=== PATIENT | female | born 1935 | race Caucasian/White ===

== ENCOUNTER → 2016-06-25 | Outpatient (CLI) | payer MEDICARE, OTHER ==
[2016-01-02 16:29] VITALS: BP 125/52
[~2016-06-25] MED LIST: ALPR1TAB6 PO; ASPI-482 PO; ASPI81TA2 PO; CARV12.5 PO; CARV3.12 PO; CARV40CP PO; CELE100C PO; CELE200C PO; CRESTOR5 MG PO; DULO60CA6 PO; FURO-69 PO; FURO40TA4 PO; HYDR-2666 PO; HYDR-2672 PO; HYDR-2762 PO; METH-38 PO; METH500T7 PO; MULT1CAP15 PO; PANT20TA3 PO; POTA99TA PO; PREG150C PO; SPIR25TA3 PO; TRAM50TA PO; VALS40TA2 PO; WARF1TAB7 PO
--- NOTE | 2016-06-25 18:26 | PAIN ---
DATE OF SERVICE: 06/25/2016 DIAGNOSES: Lumbar radiculopathy with lumbar degenerative disk disease, lumbar spinal stenosis and post-lumbar laminectomy syndrome. HISTORY: The patient is a 80-year-old female who returns for followup status post medication management with both hydrocodone and tramadol. The patient also taking Flexeril and Zanaflex, Flexeril during the day, Zanaflex at night with good results. The patient reports she has been very stable on her regimen and indeed has been on this for some time now with very good improvement. The patient reports about 70-80% improvement with the medications and without side effects. Reports her pain is a 3 on a scale 10 today. No side effects, no constipation, dizziness, drowsiness, nausea, vomiting, itching or memory loss. The patient reports that she is getting along fairly well. She is still using a walker to ambulate, still some pain in the low back and left hip and left lower extremity as she has had previously, is a 3 on a scale of 10 ____, however. The patient reports she is sleeping well at night. Again, having no other issues at this time. The patient's old chart was reviewed as her current medication regimen and updated. Current review of systems updated today as well. PHYSICAL EXAMINATION: VITAL SIGNS: Today, the patient's blood pressure is 134/75, pulse 72, respirations 20, temperature 99.5 degrees Fahrenheit, height is 5 feet 3 inches, weight is 189 pounds. GENERAL: The patient is awake, alert, oriented, appropriate, very pleasant demeanor. HEENT: Head shows normocephalic, atraumatic. Extraocular movements are intact and symmetrical. Oral cavity shows mucous membranes are moist and pink. Dentition is intact. NECK: Shows anterior throat supple. Swallow reflex is symmetrical. CHEST: Shows breath sounds clear to auscultation bilaterally. HEART: Shows S1 and S2 clear. ABDOMEN: Obese, soft, nontender, nondistended. No palpable organomegaly is noted. No rebound or guarding demonstrated. BACK: Shows grossly midline spine. Some increase in thoracic kyphosis is noted, some flattening of lumbar lordotic curvature with surgical scars again noted. Paraspinous musculature shows some moderate tenderness with palpation in the upper, middle and lower distribution of paraspinous muscles in the lumbar distribution bilaterally without any radiation of pain. EXTREMITIES: The patient's lower extremities showed deep tendon reflexes 1+ in the patellar and tendo calcaneus tendons. Motor exam remain strong with dorsiflexion, extension at 5/5. Options were discussed with the patient. We will refill the patient's hydrocodone as well as tramadol for 3-month supply as well as Zanaflex and Flexeril. She is taking the Zanaflex just at night and Flexeril during the day. The patient was counseled as to activity levels as well as side effects to be aware of and was counseled as to medication regimen and side effects to be aware of each of the medications were discussed. The patient will have the urinalysis today as well. She has had appropriate K-TRACS reporting today and appropriate urinalysis to date and had random screening today as well. The patient will follow up in approximately 90 days or sooner if necessary. NOA HUANG MD DR: YONY/radha JOB#: [id number] / [id number]
== END | disposition home or self-care (01) ==
LOC: PNCL 10:17
PROVIDERS: ATTEND Anesthesiology
DX: M51.36 Other intervertebral disc degeneration, lumbar region (principal); M48.06 Spinal stenosis, lumbar region; M96.1 Postlaminectomy syndrome, not elsewhere classified
CPT/HCPCS: G0463

== ENCOUNTER 2016-07-16 11:48 | Emergency (ER) | payer MEDICARE, OTHER ==
--- NOTE | 2016-07-16 12:55 | RAD ---
Portable chest, 07/16/2016: History: Chest pain Comparison is made to a study from 12/15/2015. A left-sided transvenous pacemaker remains in place. There are 4 leads extending into the heart. The heart appears to be within normal limits in size. There is calcific plaquing of the aorta. The pulmonary vascularity is normal. There is minimal thickening of the minor fissure on the right. No pulmonary consolidation is seen. There is no evidence of pleural fluid. A left humeral head prosthesis is in place. IMPRESSION: No acute cardiopulmonary abnormality is detected.
[2016-07-16] MEDS ORDERED: MORPHINE SULFATE 4 MG/ML DISP.SYRIN. IV ONE (13:00)
--- NOTE | 2016-07-16 13:30 | PHYS DOC ---
Past Medical History Past Medical History: CAD, CHF, Unknown Additional Past Medical Histor: Depression, anxiety, chronic back pain Past Surgical History: Knee Replacement, Other Additional Past Surgical Histo: pacemaker, defib, back surgery, shoulder Alcohol Use: None Drug Use: None Adult General Chief Complaint Chief Complaint: BACK PAIN - NO INJURY HPI HPI Patient is a 80 year old female who reports history of CHF with defibrillator, hypertension, chronic back pain and chronic "nerve pain", presents with constant , cramping like pain in her left lower chest, radiating to the flank to her left posterior flank and down into her low back. This is been present since yesterday. She has had pain similar to this in the past. She denies any inciting trauma or injury. Nothing seems to make the pain better or worse. She denies cough, shortness breath, palpitations, nausea, vomiting, diarrhea, abdominal pain, bloody stools, dysuria, or hematuria. She does report constipation. She apparently recently switched from Lyrica gabapentin due to cost issues, and she believes that this may be causing her flareup of pain. The she apparently takes benzodiazepine as well as hydrocodone for pain. Review of Systems Review of Systems Constitutional: Denies fever or chills Eyes: Denies change in visual acuity, redness, or eye pain HENT: Denies nasal congestion or sore throat Respiratory: Denies cough or shortness of breath Cardiovascular: Left lower chest pain. Denies palpitations or lightheadedness. GI: Denies abdominal pain, nausea, vomiting, bloody stools or diarrhea. Reports constipation. : Denies dysuria or hematuria Musculoskeletal: Reports left posterior flank/back pain radiating down into the low back. Integument: Denies rash or skin lesions Neurologic: Denies headache, focal weakness or sensory changes Current Medications Current Medications Current Medications Medications (Trade) Dose Ordered Sig/[facility] Start Time Stop Time Status Last Admin Dose Admin Lorazepam (Ativan) 1 mg 1X ONCE 07/16/16 16:45 07/16/16 16:46 DC 07/16/16 16:45 1 MG Morphine Sulfate 4 mg 1X ONCE 07/16/16 13:00 07/16/16 13:01 DC 07/16/16 12:57 4 MG Allergies Allergies Allergies Coded Allergies Type Severity Reaction Last Updated Verified oxycodone Allergy Intermediate "MAKES HER CRAZY", TAKES LORTAB AT HOME 7/12/ 16 Yes Physical Exam Physical Exam Constitutional: Well developed, well nourished, no acute distress, non-toxic appearance. HENT: Normocephalic, atraumatic, bilateral external ears normal, oropharynx moist, no oral exudates, nose normal. Eyes: PERRLA, EOMI, conjunctiva normal, no discharge. Neck: Normal range of motion, no tenderness, supple, no stridor. Cardiovascular:Heart rate regular rhythm, no murmur Lungs & Thorax: Bilateral breath sounds clear to auscultation. Reproducible tenderness of the left lower chest wall, left lateral and posterior flank. Some mild CVA tenderness appreciated. Abdomen: Bowel sounds normal, soft, no tenderness, no masses, no pulsatile masses. Skin: Warm, dry, no erythema, no rash. Back: Mild tenderness over the left CVA region, mild lateral flank tenderness to palpation. No deformity, atraumatic to inspection. Extremities: No tenderness, no cyanosis, ROM intact, no edema. Neurologic: Alert and oriented X 3, normal motor function, normal sensory function, no focal deficits noted. Psychologic: Anxious, tearful. Current Patient Data Vital Signs Vital Signs Date Time Temp Pulse Resp B/P Pulse Ox O2 Delivery O2 Flow Rate FiO2 07/16/16 17:00 70 12 151/68 97 Room Air 07/16/16 11:55 97.7 97.7 Lab Values Laboratory Tests Test 07/16/16 14:45 07/16/16 15:45 White Blood Count 7.1x10^3/uL (4.0-11.0) Red Blood Count 4.73x10^6/uL (3.50-5.40) Hemoglobin 12.4g/dL (12.0-15.5) Hematocrit 38.4% (36.0-47.0) Mean Corpuscular Volume 81fL (79-100) Mean Corpuscular Hemoglobin 26pg (25-35) Mean Corpuscular Hemoglobin Concent 32g/dL (31-37) Red Cell Distribution Width 16.4% (11.5-14.5) H Platelet Count 203x10^3/uL (140-400) Neutrophils (%) (Auto) 69% (31-73) Lymphocytes (%) (Auto) 21% (24-48) L Monocytes (%) (Auto) 8% (0-9) Eosinophils (%) (Auto) 1% (0-3) Basophils (%) (Auto) 1% (0-3) Neutrophils # (Auto) 4.9x10^3uL (1.8-7.7) Lymphocytes # (Auto) 1.5x10^3/uL (1.0-4.8) Monocytes # (Auto) 0.6x10^3/uL (0.0-1.1) Eosinophils # (Auto) 0.1x10^3/uL (0.0-0.7) Basophils # (Auto) 0.0x10^3/uL (0.0-0.2) Prothrombin Time 13.2SEC (11.7-14.0) Prothrombin Time INR 1.1 (0.8-1.1) Sodium Level 144mmol/L (136-145) Potassium Level 3.9mmol/L (3.5-5.1) Chloride Level 106mmol/L (98-107) Carbon Dioxide Level 29mmol/L (21-32) Anion Gap 9 (6-14) Blood Urea Nitrogen 11mg/dL (7-20) Creatinine 0.9mg/dL (0.6-1.0) Estimated GFR (Cockcroft-Gault) 60.4 BUN/Creatinine Ratio 12 (6-20) Glucose Level 103mg/dL (70-99) H Calcium Level 9.5mg/dL (8.5-10.1) Total Bilirubin 0.5mg/dL (0.2-1.0) Aspartate Amino Transferase (AST) 17U/L (15-37) Alanine Aminotransferase (ALT) 18U/L (14-59) Alkaline Phosphatase 84U/L (46-116) Troponin I Quantitative < 0.017ng/mL (0.000-0.055) Total Protein 7.3g/dL (6.4-8.2) Albumin 3.9g/dL (3.4-5.0) Albumin/Globulin Ratio 1.1 (1.0-1.7) Urine Collection Type Unknown Urine Color Yellow Urine Clarity Clear Urine pH 8.5 Urine Specific [place] <=1.005 Urine Protein Negativemg/dL (NEG-TRACE) Urine Glucose (UA) Negativemg/dL (NEG) Urine Ketones (Stick) Negativemg/dL (NEG) Urine Blood Negative (NEG) Urine Nitrite Negative (NEG) Urine Bilirubin Negative (NEG) Urine Urobilinogen Dipstick 0.2mg/dL (0.2 mg/dL) Urine Leukocyte Esterase Negative (NEG) Urine RBC Occ/HPF (0-2) Urine WBC Occ/HPF (0-4) Urine Squamous Epithelial Cells Occ/LPF Urine Bacteria 0/HPF (0-FEW) Laboratory Tests 07/16/16 14:45 Laboratory Tests 07/16/16 14:45 EKG EKG EKG: Apparent sinus rhythm with occasional pacer spikes. Rate 70 bpm. Normal axis. Nonspecific intraventricular block, QRS [address] segment changes or acute abnormalities. EKG interpreted by me. Radiology/Procedures Radiology/Procedures PATIENT: LIA DIAZ ACCOUNT: [id number] : 1935 LOCATION: ER AGE: 80 SEX: F EXAM STATUS: PRE ER ORD. PHYSICIAN: MARCO A JOLLEY MD REASON: chest pain PROCEDURE: CHEST AP ONLY Portable chest, 07/16/2016: History: Chest pain Comparison is made to a study from 12/15/2015. A left-sided transvenous pacemaker remains in place. There are 4 leads extending into the heart. The heart appears to be within normal limits in size. There is calcific plaquing of the aorta. The pulmonary vascularity is normal. There is minimal thickening of the minor fissure on the right. No pulmonary consolidation is seen. There is no evidence of pleural fluid. A left humeral head prosthesis is in place. IMPRESSION: No acute cardiopulmonary abnormality is detected. DICTATED and SIGNED BY: SCOTT GARCÍA MD DATE: 07/16/16 1250 CC: YEIMY PACK MD; MARCO A JOLLEY MD ~ PATIENT: ILA DIAZ ACCOUNT: [id number] : 1935 LOCATION: ER AGE: 80 SEX: F EXAM STATUS: REG ER ORD. PHYSICIAN: MARCO A JOLLEY MD REASON: flank pain; r/o stone PROCEDURE: ABDOMEN PELVIS WO CONTRAST PROCEDURE CT scan of the abdomen and pelvis without contrast 07/16/2016 HISTORY Left flank pain for 2 weeks. TECHNIQUE Unenhanced contiguous, 2 millimeter axial sections were obtained through the abdomen and pelvis. One or more of the following individualized dose reduction techniques were utilized for this study: 1. Automated exposure control. 2. Adjustment of the mA and/or kV according to patient size. 3. Use of iterative reconstruction technique. FINDINGS Comparison study is dated 04/30/2013. Images through the lung bases demonstrate mild to moderate cardiomegaly. Dependent subsegmental atelectasis is seen involving both lower lobes. The liver, spleen, pancreas, adrenal glands and kidneys are within normal limits. Moderate atherosclerotic calcification of the abdominal aorta is seen. The abdominal aorta tapers normally. The gallbladder is contracted slightly. No free fluid or free air is seen within the abdomen. There is no evidence of bowel obstruction. Air and stool is seen throughout the colon. The appendix is well-visualized and is within normal limits. Images through the pelvis demonstrate the urinary bladder distended with urine. No distal ureteral calculus is seen. Calcifications are seen within the pelvis consistent with phleboliths. No adnexal mass is seen. Minimal S-shaped curvature of the thoracolumbar spine is noted. Degenerative changes are seen involving the lower thoracic and throughout the lumbar spine and both hips. The patient is status post posterolateral fusion using pedicle screws and stabilizing rods at L4-5. IMPRESSION No acute abnormality is seen. Electronically signed by: Sonido West MD (Jul 16, 2016 17:34:20) DICTATED and SIGNED BY: SONIDO WEST MD DATE: 07/16/16 1734 CC: YEIMY PACK MD; MARCO A JOLLEY MD ~ Course & Med Decision Making Course & Med Decision Making Pertinent Labs and Imaging studies reviewed. (See chart for details) Patient is stable vitals and unremarkable exam. She has minimal tenderness to palpation. Labs are unremarkable, x-ray is unrevealing, EKG is nonischemic, and troponin is negative. Urinalysis is not suggestive of infection. Her pain appears to be either neuropathic or musculoskeletal in nature. She takes hydrocodone/APAP twice a day and is also on gabapentin. I have advised that she can take hydrocodone/APAP every 4-6 hours as needed for the next few days until this blows over. I did a CT on the/pelvis to rule out kidney stone and this was negative. I also discussed case with Dr. Pack and she agrees the patient is safe to be discharged home. I advised she follow up with Dr. 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 Return precautions were discussed and all questions were answered prior to discharge. Dragon Disclaimer Dragon Disclaimer This electronic medical record was generated, in whole or in part, using a voice recognition dictation system. Departure Departure Impression: Primary Impression: Flank pain Additional Impression: Back pain Disposition: HOME, SELF-CARE Condition: STABLE Referrals: YEIMY PACK MD (PCP) Patient Instructions: Back Pain, Adult, [id number], Chronic Back Pain Additional Instructions: Continue taking your medications as directed. You may take your hydrocodone every 4-6 hours as needed for the next few days until this episode of pain blows over. If your symptoms change or worsen, return to the emergency department. Otherwise, follow up next week with Dr. Pack and your automotive painter helper in clinic. Problem Qualifiers Additional Impression: Back pain Back pain location: low back pain Chronicity: chronic Back pain laterality : left Sciatica presence: unspecified whether sciatica present Qualified Code: M54.5 - Low back pain MARCO A JOLLEY MD Jul 16, 2016 12:46
[2016-07-16 15:00] LABS: BASO % 1 % (0-3); EOS % 1 % (0-3); HEMATOCRIT 38.4 % (36.0-47.0); HEMOGLOBIN 12.4 g/dL (12.0-15.5); LYMPH # 1.5 x10^3/uL (1.0-4.8); LYMPH % 21 % (24-48); MEAN CORPUSCULAR HEMOGLOBIN 26 pg (25-35); MEAN CORPUSCULAR HGB CONC 32 g/dL (31-37); MEAN CORPUSCULAR VOLUME 81 fL (79-100); MONO % 8 % (0-9); NEUT % 69 % (31-73); PLATELET COUNT 203 x10^3/uL (140-400); RED BLOOD COUNT 4.73 x10^6/uL (3.50-5.40); RED CELL DISTRIBUTION WIDTH 16.4 % (11.5-14.5); WHITE BLOOD COUNT 7.1 x10^3/uL (4.0-11.0)
--- NOTE | 2016-07-16 15:06 | EKG ---
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
[2016-07-16 15:11] LABS: INR 1.1 (0.8-1.1); PROTHROMBIN TIME PATIENT 13.2 SEC (11.7-14.0)
[2016-07-16 15:14] LABS: CALCIUM 9.5 mg/dL (8.5-10.1); CREATININE 0.9 mg/dL (0.6-1.0); GFR 60.4; POTASSIUM 3.9 mmol/L (3.5-5.1)
[2016-07-16 15:21] LABS: ALBUMIN 3.9 g/dL (3.4-5.0); ALBUMIN/GLOBULIN RATIO 1.1 (1.0-1.7); TOTAL BILIRUBIN 0.5 mg/dL (0.2-1.0); TOTAL PROTEIN 7.3 g/dL (6.4-8.2)
[2016-07-16 15:57] LABS: BILIRUBIN,URINE NEGATIVE (NEG); GLUCOSE,URINE NEGATIVE (NEG); NITRITE,URINE NEGATIVE (NEG); PH,URINE 8.5; PROTEIN,URINE NEGATIVE (NEG-TRACE); UROBILINOGEN,URINE 0.2 mg/dL (0.2 mg/dL)
[2016-07-16 16:04] LABS: BACTERIA,URINE 0 /HPF (0-FEW); RBC,URINE OCC /HPF (0-2); SQUAMOUS EPITHELIAL CELL,UR OCC /LPF; WBC,URINE OCC /HPF (0-4)
[2016-07-16] MEDS ORDERED: LORAZEPAM 2 MG/ML VIAL IV ONE (16:45)
[2016-07-16 17:30] VITALS: BP 145/72
--- NOTE | 2016-07-16 17:35 | RAD ---
PROCEDURE CT scan of the abdomen and pelvis without contrast 07/16/2016 HISTORY Left flank pain for 2 weeks. TECHNIQUE Unenhanced contiguous, 2 millimeter axial sections were obtained through the abdomen and pelvis. One or more of the following individualized dose reduction techniques were utilized for this study: 1. Automated exposure control. 2. Adjustment of the mA and/or kV according to patient size. 3. Use of iterative reconstruction technique. FINDINGS Comparison study is dated 04/30/2013. Images through the lung bases demonstrate mild to moderate cardiomegaly. Dependent subsegmental atelectasis is seen involving both lower lobes. The liver, spleen, pancreas, adrenal glands and kidneys are within normal limits. Moderate atherosclerotic calcification of the abdominal aorta is seen. The abdominal aorta tapers normally. The gallbladder is contracted slightly. No free fluid or free air is seen within the abdomen. There is no evidence of bowel obstruction. Air and stool is seen throughout the colon. The appendix is well-visualized and is within normal limits. Images through the pelvis demonstrate the urinary bladder distended with urine. No distal ureteral calculus is seen. Calcifications are seen within the pelvis consistent with phleboliths. No adnexal mass is seen. Minimal S-shaped curvature of the thoracolumbar spine is noted. Degenerative changes are seen involving the lower thoracic and throughout the lumbar spine and both hips. The patient is status post posterolateral fusion using pedicle screws and stabilizing rods at L4-5. IMPRESSION No acute abnormality is seen. Electronically signed by: Sonido West MD (Jul 16, 2016 17:34:20)
== END 2016-07-16 18:00 | disposition home or self-care (01) ==
LOC: ER 11:48
DX: M54.5 Low back pain (principal); R10.9 Unspecified abdominal pain; G89.29 Other chronic pain; R07.89 Other chest pain; I11.0 Hypertensive heart disease with heart failure; I50.9 Heart failure, unspecified; I25.10 Atherosclerotic heart disease of native coronary artery without angina pectoris; Z95.810 Presence of automatic (implantable) cardiac defibrillator; Z98.890 Other specified postprocedural states; Z88.5 Allergy status to narcotic agent
CPT/HCPCS: 36415; 71010; 74176; 80053; 81001; 84484; 85027; 85610; 93005; 96374; 96375; 99285; J2060; J2270

== ENCOUNTER → 2016-09-17 | Outpatient (CLI) | payer MEDICARE, OTHER ==
[~2016-09-17] MED LIST changes: +CYCL10TA2 PO; +TIZA4TAB PO
--- NOTE | 2016-09-18 00:07 | PN ---
DATE: 09/17/2016 PROGRESS NOTE FOR PAIN CLINIC DIAGNOSES: Lumbar radiculopathy, lumbar degenerative disk disease, spinal stenosis and post-lumbar laminectomy syndrome. HISTORY OF PRESENT ILLNESS: The patient is an 81-year-old female who returns for followup status post medication management with both tramadol and hydrocodone as well as Zanaflex and cyclobenzaprine. The patient reports she has been doing well with these and has a combination of taking the medications of tramadol 2 in the morning, 2 in the evening, and hydrocodone up to 3 times a day during the day and waking hours depending on her activity. The patient reports she is very well controlled with this regimen about 80% or so without significant side effects. She does have some mild constipation, but has been using prunes and prune juices as well as some [id number] laxatives which helps keep things regular for her and she has good regimen regarding this. The patient reports no new motor or sensory deficits, no new bowel or bladder incontinence or other complaints, still significant pain in the low back and the left leg. We had tried some caudal approach epidural steroid injections in the past and the patient only had very minimal relief with this, did not desire any more injections. We discussed this again today with she and her and she would like to stay with her medication regimen as she is doing quite well with this and indeed has been quite stable. The patient had appropriate K-TRACS reporting today and appropriate urinalysis today as well. On rating patient reports her pain is 2-3 on a scale of 10 currently. Describes it is hurting and spastic in the low back and left leg. PHYSICAL EXAMINATION: VITAL SIGNS: The patient's blood pressure 131/71, pulse is 74, respirations 18, temperature is 98.9 degrees Fahrenheit, weight is 186 pounds. GENERAL: The patient is awake, alert, oriented, appropriate, very pleasant demeanor. HEENT: Head shows normocephalic, atraumatic. Extraocular movements are intact, symmetrical. Oral cavity, mucous membranes are moist and pink. Dentition is intact. NECK: Shows anterior throat supple without palpable lymphadenopathy noted. Swallow reflex is symmetrical. CHEST: Shows normal with inspection. Breath sounds clear to auscultation bilaterally. HEART: Shows S1 and S2 clear. No murmurs are auscultated. ABDOMEN: Shows obese, soft, nontender, nondistended. No palpable organomegaly is noted. BACK: Shows spine grossly midline. The patient's lumbar paraspinous muscle shows a well-healed surgical scar in the midline and paraspinous musculature that shows diffuse tenderness bilaterally, worse on the left than the right especially in the mid upper aspect of the left paraspinous musculature, which is very firm, very tender with palpation, right side less tender. No tenderness over the sacrum on palpation. The patient's lower extremities showed deep tendon reflexes 1+ in the patellar and tendo calcaneus tendons. Motor exam is strong with dorsiflexion, extension, quadriceps and hamstring flexion rated about 4/5, but symmetrical and equal. Options were discussed with the patient. The patient's old chart was reviewed as her current medication regimen and updated. Current review of systems updated today as well. We will refill the patient's hydrocodone as well as tramadol, Zanaflex and Flexeril with instructions, side effects to be aware of each of the medications discussed. The patient will follow up in approximately 2 months and was given a 60 day prescription for each of these with instructions and side effects to be aware of once again. The patient will follow up in 60 days or sooner if necessary. NOA HUANG MD DR: YONY/radha JOB#: [id number] / [id number]
== END | disposition home or self-care (01) ==
LOC: PNCL 10:25
PROVIDERS: ATTEND Anesthesiology
DX: M51.16 Intervertebral disc disorders with radiculopathy, lumbar region (principal); M48.06 Spinal stenosis, lumbar region; M96.1 Postlaminectomy syndrome, not elsewhere classified
CPT/HCPCS: G0463

== ENCOUNTER → 2016-11-05 | Outpatient (CLI) | payer MEDICARE, OTHER ==
--- NOTE | 2016-11-06 00:26 | PAIN ---
DATE OF SERVICE: 11/05/2016 DIAGNOSES: Lumbar radiculopathy with lumbar degenerative disk disease, spinal stenosis and post-lumbar laminectomy syndrome. HISTORY OF PRESENT ILLNESS: The patient is an 81-year-old female, who returns for followup status post medication management with both tramadol and hydrocodone as well as Flexeril and Zanaflex. The patient reports doing well as ____ balance with these medications and doing very well for her pain decreasing by about 80% or more. The patient reports some increased pain in the low back in the right side radiating to her right leg, mostly in the posterior lateral aspect of the thigh and into the calf on the right side, but it is only intermittent burning, stinging, sharp pain as well as aching across the low back. The patient reports anywhere from 3-7 on a scale 10, 7 with activity, standing and walking. It does not awaken her from sleep at night. She has been sleeping well, but feels better with sitting down or lying down. The patient reports no new motor or sensory deficits, no new bowel or bladder incontinence or other complaints. PHYSICAL EXAMINATION: VITAL SIGNS: The patient's blood pressure is 104/58, pulse is 94, respirations 18, temperature is 98.0 degrees Fahrenheit, weight is 186 pounds, and height 5 feet 3 inches. GENERAL: The patient is awake, alert, oriented, appropriate, very pleasant demeanor. HEENT: Shows normocephalic and atraumatic. Extraocular movements are intact and symmetrical. Oral cavity shows mucous membranes moist and pink. The patient wears eye glasses. NECK: Shows anterior throat supple without palpable lymphadenopathy noted. Swallow reflex is symmetrical. CHEST: Shows normal on inspection. Breath sounds clear to auscultation bilaterally. HEART: Shows S1 and S2 clear. ABDOMEN: Soft, nontender, and nondistended. No palpable organomegaly is noted. BACK: Shows spine grossly midline. Slight exaggeration of thoracic kyphosis, mild flattening of lumbar lordotic curvature, previously well-healed surgical scar is noted in the lumbar distribution. Lumbar paraspinous muscle shows some moderate tenderness to palpation bilaterally, but only diffusely in the lumbar paraspinous musculature. Options were discussed with the patient and the patient's old chart was reviewed as her current medication regimen updated. Current review of systems updated today as well. We will proceed with refill of patient's tramadol as well as hydrocodone, Zanaflex and Flexeril, also try Medrol Dosepak to see if this may help with her radicular pain and her low back pain. The patient will return to clinic in approximately 4 weeks for followup. She was counseled as to return appointment, activity level and side effects to be aware of. The patient has had appropriate K-TRACS reporting as well as appropriate urinalysis to date. We will refill the patient's pain medication for 2 months with side effects and instructions discussed as well. NOA HUANG MD DR: YONY/radha JOB#: [id number] / [id number]
== END | disposition home or self-care (01) ==
LOC: PNCL 09:49
PROVIDERS: ATTEND Anesthesiology
DX: M51.16 Intervertebral disc disorders with radiculopathy, lumbar region (principal); M48.06 Spinal stenosis, lumbar region; M96.1 Postlaminectomy syndrome, not elsewhere classified
CPT/HCPCS: G0463

== ENCOUNTER → 2016-12-31 | Outpatient (CLI) | payer MEDICARE, OTHER ==
[~2016-12-31] MED LIST changes: +ASPI-630 PO; -ASPI81TA2 PO; -HYDR-2666 PO; -HYDR-2672 PO; +HYDR-2758 PO; +HYDR-2766 PO
== END | disposition home or self-care (01) ==
LOC: PNCL 10:23
PROVIDERS: ATTEND Anesthesiology
DX: M50.30 Other cervical disc degeneration, unspecified cervical region (principal); Z98.890 Other specified postprocedural states
CPT/HCPCS: G0463

== ENCOUNTER → 2017-02-25 | Outpatient (CLI) | payer MEDICARE, OTHER ==
[~2017-02-25] MED LIST changes: +CARV25TA2 PO; +TIZA4TAB8 PO
--- NOTE | 2017-02-25 15:19 | PN ---
DATE: 02/25/2017 PROGRESS NOTE ON PAIN CLINIC. DIAGNOSES: Lumbar radiculopathy with lumbar spinal stenosis, degenerative disk disease and post-lumbar laminectomy syndrome. HISTORY OF PRESENT ILLNESS: The patient is an 81-year-old female who returns for followup status post medication management with both tramadol and hydrocodone. The patient reports she has been doing very well with this as a good regimen, where she is taking the tramadol intermittently with hydrocodone only up to 3 times a day, mostly in the evening. She takes hydrocodone and tramadol during the day when she is more active. The patient reports no side effects with the medication, some mild constipation, but it is well controlled with some qadf-jni-pgopwhe laxatives and increase hydration as well as fruits and pulp that she is eating. The patient reports otherwise no new motor or sensory deficits. The patient reports about 80% improvement overall with the medications and no other side effects. The patient reports her pain is a 10 on a scale of 10, it is worse 8 at the average and 7 at the least. The patient reports pain in the low back, left lower extremity radiating to the posterior gluteus, lateral thigh, posterior thigh, anterior thigh and groin on the left side, off and on. Though it is not a constant pain, the patient reports it is worse with standing, walking, getting around or changing positions. We had interventional techniques tried in the past. The patient reports that she did not do well with these and is adamantly against trying these again. We discussed caudal epidural steroid injections, but they have been very limited for her in the past and the medication seems to be working quite well. The patient has had appropriate K-TRACS reporting as well as appropriate urinalysis to date. PHYSICAL EXAMINATION: VITAL SIGNS: The patient's blood pressure is 86/22, rechecked at 107/64; pulse is 57; respirations 16 and temperature 97.7 degrees Fahrenheit. Height is 5 feet 3 inches. GENERAL: The patient is awake, alert, oriented, appropriate, very pleasant demeanor. The patient accompanied by her . HEENT: Head shows normocephalic, atraumatic. Extraocular movements are intact and symmetrical. Oral cavity, mucous membranes are moist and pink. Dentition is intact. NECK: Shows anterior throat supple. Swallow reflex is symmetrical. CHEST: Shows normal on inspection. Breath sounds are clear bilaterally. HEART: Shows S1 and S2 clear. No murmurs auscultated. ABDOMEN: Soft, nontender and nondistended. No palpable organomegaly is noted. No rebound or guarding demonstrated. BACK: Shows spine grossly in the midline. Some reduction and flattening of the lumbar lordotic curvature with well-healed surgical scar noted. The paraspinous muscle shows some mild tenderness, but only diffusely in the upper, middle and lower distribution of paraspinous muscles, without radiation. LOWER EXTREMITIES: Show deep tendon reflexes 1+ in the patellar and tendo calcaneus tendons. Motor exam is approximately 4 on a scale of 5 with dorsiflexion and extension, but equal and symmetrical. Pulses are 1+ in the posterior tibial bilaterally without edema. Options were discussed with the patient. The patient's old chart was reviewed as her current medication regimen updated. Current review of systems updated today as well. We will refill the patient's medication for a 2-month prescription for tramadol, hydrocodone and also Robaxin and Zanaflex. She takes the Zanaflex only in the evening and Robaxin during the day as she does not get sedated from it, but does from the Zanaflex and reports again she has very stable regimen that does well for her. We discussed diet as well as hydration, with the opioid medications and the patient will follow up soon with her primary care physician as well to discuss blood pressure medications and she is unsure that she may have taken 2 of her blood pressure medications this morning, which may explain this initially low reading. The patient will follow up in 2 months as scheduled, was given instruction as well as side effects to be aware of with medications also. NOA HUANG MD DR: YONY/radha JOB#: [id number] / [id number]
== END | disposition home or self-care (01) ==
LOC: PNCL 10:10
PROVIDERS: ATTEND Anesthesiology
DX: M51.16 Intervertebral disc disorders with radiculopathy, lumbar region (principal); M48.06 Spinal stenosis, lumbar region
CPT/HCPCS: G0463

== ENCOUNTER → 2017-06-17 | Outpatient (CLI) | payer MEDICARE, OTHER | END | disposition home or self-care (01) | LOC: PNCL 11:35 | DX: M48.061 Spinal stenosis, lumbar region without neurogenic claudication (principal); M51.16 Intervertebral disc disorders with radiculopathy, lumbar region; K59.00 Constipation, unspecified | CPT/HCPCS: G0463 ==

== ENCOUNTER → 2017-08-24 | Outpatient (CLI) | payer MEDICARE, OTHER | END | disposition home or self-care (01) | LOC: PNCL 11:19 | DX: M51.16 Intervertebral disc disorders with radiculopathy, lumbar region (principal); M48.061 Spinal stenosis, lumbar region without neurogenic claudication; M40.294 Other kyphosis, thoracic region; M25.562 Pain in left knee | CPT/HCPCS: G0463 ==

== ENCOUNTER → 2017-10-19 | Outpatient (CLI) | payer MEDICARE, OTHER | END | disposition home or self-care (01) | LOC: PNCL 10:14 | DX: M51.16 Intervertebral disc disorders with radiculopathy, lumbar region (principal); M48.061 Spinal stenosis, lumbar region without neurogenic claudication; K59.00 Constipation, unspecified | CPT/HCPCS: G0463 ==

== ENCOUNTER 2018-01-11 15:07 | Inpatient (IN) | payer MEDICARE, OTHER ==
[2018-01-11] MEDS: IV NORMAL SALINE 1000ML BAG 1,000 ML IV ×2 (15:18→23:32)
[2018-01-11 15:26] LABS: BASE EXCESS ABG 1 mmol/L (-3-3); FIO2 ABG 100; HCO3 ABG 27 mmol/L (21-28); PCO2 ABG 48 mmHg (35-46); PH ABG 7.36 (7.35-7.45); PO2 ABG 202 mmHg (65-108); SAT O2 ABG 99 % (92-99)
[2018-01-11 15:27] LABS: AGAP ISTAT 16 mmol/L (6-14); BUN ISTAT 24 mg/dL (8-26); CHLORIDE ISTAT 101 mmol/L (98-110); CREATININE ISTAT 1.1 mg/dL (0.5-1.4); GLUCOSE ISTAT 161 mg/dL (70-99); HEMATOCRIT ISTAT 41 % (36-40); HEMOGLOBIN ISTAT 13.9 g/dL (12-15); ION CA ISTAT 1.19 mmol/L (1.13-1.32); POTASSIUM ISTAT 3.9 mmol/L (3.5-5.0); SODIUM ISTAT 141 mmol/L (135-145); TOT CO2 ISTAT 29 mmol/L (23-32)
[2018-01-11 15:30] LABS: ADD MAN DIFF? NO
[2018-01-11 15:33] LABS: TROPONIN BY ISTAT 0.01 ng/ml (<0.08)
[2018-01-11 15:40] LABS: BASO % 1 % (0-3); BILIRUBIN,URINE NEGATIVE (NEG); CLARITY,URINE CLEAR; COLOR,URINE YELLOW; EOS # 0.1 x10^3/uL (0.0-0.7); EOS % 2 % (0-3); GLUCOSE,URINE NEGATIVE (NEG); HEMATOCRIT 41.1 % (36.0-47.0); HEMOGLOBIN 13.3 g/dL (12.0-15.5); LYMPH % 33 % (24-48); MEAN CORPUSCULAR HEMOGLOBIN 26 pg (25-35); MEAN CORPUSCULAR HGB CONC 32 g/dL (31-37); MEAN CORPUSCULAR VOLUME 81 fL (79-100); MONO # 0.6 x10^3/uL (0.0-1.1); MONO % 9 % (0-9); NEUT # 3.5 x10^3uL (1.8-7.7); NEUT % 55 % (31-73); NITRITE,URINE NEGATIVE (NEG); PLATELET COUNT 173 x10^3/uL (140-400); PROTEIN,URINE NEGATIVE (NEG-TRACE); RED BLOOD COUNT 5.05 x10^6/uL (3.50-5.40); RED CELL DISTRIBUTION WIDTH 18.6 % (11.5-14.5); UROBILINOGEN,URINE 0.2 mg/dL (0.2 mg/dL); WHITE BLOOD COUNT 6.2 x10^3/uL (4.0-11.0)
[2018-01-11 15:45] LABS: BACTERIA,URINE 0 /HPF (0-FEW); WBC,URINE OCC /HPF (0-4)
[2018-01-11 15:46] LABS: HYALINE CASTS, URINE FEW /HPF
[2018-01-11 15:47] LABS: INR 1.1 (0.8-1.1); PROTHROMBIN TIME PATIENT 13.7 SEC (11.7-14.0)
[2018-01-11 15:50] LABS: ANION GAP 15 (6-14); BLOOD UREA NITROGEN 23 mg/dL (7-20); BUN/CREATININE RATIO 19 (6-20); CALCIUM 10.3 mg/dL (8.5-10.1); CARBON DIOXIDE 27 mmol/L (21-32); CHLORIDE 100 mmol/L (98-107); CREATININE 1.2 mg/dL (0.6-1.0); GFR 43.1; GLUCOSE 157 mg/dL (70-99); POTASSIUM 3.9 mmol/L (3.5-5.1); SODIUM 142 mmol/L (136-145)
[2018-01-11 15:57] LABS: ALBUMIN/GLOBULIN RATIO 1.1 (1.0-1.7); ALK PHOS 124 U/L (46-116); ALT (SGPT) 24 U/L (14-59); AST (SGOT) 25 U/L (15-37); MAGNESIUM 2.1 mg/dL (1.8-2.4); TOTAL BILIRUBIN 0.8 mg/dL (0.2-1.0); TOTAL PROTEIN 7.7 g/dL (6.4-8.2)
[2018-01-11 15:58] LABS: TROPONINI < 0.017 ng/mL (0.000-0.055)
[2018-01-11 16:06] LABS: CKMB MASS 1.4 ng/mL (0.0-3.6); CREATINE KINASE 70 U/L (26-192)
[2018-01-11 16:06] LABS: NT-PRO BNP 191 pg/mL (0-449)
[2018-01-11] MEDS: fentaNYL PF VIAL 100 MCG/2 ML VIAL IV (19:29)
[2018-01-11] MEDS: ONDANSETRON PF 4 MG/2 ML VIAL. IV (19:29)
[2018-01-11] MEDS: tiZANidine 4 MG TABLET. PO (21:19)
[2018-01-11] MEDS: PREGABALIN 75 MG CAPSULE PO (23:29)
[2018-01-12] MEDS: NOREPINEPHRIN 8MG/250ML PREMIX 250 ML IV (01:31)
[2018-01-12 08:23] LABS: MAGNESIUM 2.2 mg/dL (1.8-2.4)
[2018-01-12 08:26] LABS: ALBUMIN 3.3 g/dL (3.4-5.0); ALK PHOS 113 U/L (46-116); ALT (SGPT) 27 U/L (14-59); ANION GAP 9 (6-14); AST (SGOT) 38 U/L (15-37); BLOOD UREA NITROGEN 17 mg/dL (7-20); BUN/CREATININE RATIO 21 (6-20); CARBON DIOXIDE 29 mmol/L (21-32); CHLORIDE 107 mmol/L (98-107); CREATININE 0.8 mg/dL (0.6-1.0); GFR 68.8; GLUCOSE 97 mg/dL (70-99); POTASSIUM 3.8 mmol/L (3.5-5.1); SODIUM 145 mmol/L (136-145); TOTAL BILIRUBIN 0.6 mg/dL (0.2-1.0); TOTAL PROTEIN 6.6 g/dL (6.4-8.2)
[2018-01-12 08:32] LABS: TROPONINI < 0.017 ng/mL (0.000-0.055)
[2018-01-12 08:37] LABS: THYROID STIM HORMONE (TSH) 2.737 uIU/mL (0.358-3.74)
[2018-01-12 10:51] LABS: INR 1.1 (0.8-1.1); PROTHROMBIN TIME PATIENT 13.5 SEC (11.7-14.0)
[2018-01-12] MEDS: IV NORMAL SALINE 1000ML BAG 1,000 ML IV ×2 (12:50→17:31)
[2018-01-12] MEDS ORDERED: traMADol 50 MG TABLET PO (13:30)
[2018-01-12] MEDS: HYDROcodone/APAP 7.5/325MG 1 TAB TABLET PO ×2 (13:35→20:11)
[2018-01-12] MEDS: PREGABALIN 75 MG CAPSULE PO ×2 (13:35→20:12)
[2018-01-12] MEDS: LACTULOSE 20 GM/30 ML SOLUTION. PO (13:45)
[2018-01-12 20:18] LABS: C DIFF BY PCR Negative (Negative)
[2018-01-12] MEDS: SOTALOL 80 MG TABLET. PO (21:54)
[2018-01-13] MEDS: tiZANidine 4 MG TABLET. PO (00:07)
[2018-01-13] MEDS: HYDROcodone/APAP 7.5/325MG 1 TAB TABLET PO (00:08)
[2018-01-13 04:29] LABS: ADD MAN DIFF? NO
[2018-01-13 05:06] LABS: BASO % 0 % (0-3); EOS # 0.2 x10^3/uL (0.0-0.7); EOS % 3 % (0-3); HEMATOCRIT 33.1 % (36.0-47.0); HEMOGLOBIN 10.8 g/dL (12.0-15.5); LYMPH # 1.2 x10^3/uL (1.0-4.8); LYMPH % 23 % (24-48); MEAN CORPUSCULAR HEMOGLOBIN 27 pg (25-35); MEAN CORPUSCULAR HGB CONC 33 g/dL (31-37); MEAN CORPUSCULAR VOLUME 83 fL (79-100); MONO # 0.5 x10^3/uL (0.0-1.1); MONO % 9 % (0-9); NEUT # 3.5 x10^3uL (1.8-7.7); NEUT % 65 % (31-73); PLATELET COUNT 124 x10^3/uL (140-400); RED CELL DISTRIBUTION WIDTH 18.5 % (11.5-14.5); WHITE BLOOD COUNT 5.4 x10^3/uL (4.0-11.0)
[2018-01-13 05:37] LABS: ALBUMIN 2.9 g/dL (3.4-5.0); ALBUMIN/GLOBULIN RATIO 0.9 (1.0-1.7); ALK PHOS 94 U/L (46-116); ALT (SGPT) 21 U/L (14-59); ANION GAP 6 (6-14); AST (SGOT) 29 U/L (15-37); BLOOD UREA NITROGEN 10 mg/dL (7-20); BUN/CREATININE RATIO 14 (6-20); CALCIUM 9.3 mg/dL (8.5-10.1); CARBON DIOXIDE 28 mmol/L (21-32); CHLORIDE 109 mmol/L (98-107); CREATININE 0.7 mg/dL (0.6-1.0); GFR 80.3; GLUCOSE 96 mg/dL (70-99); POTASSIUM 3.8 mmol/L (3.5-5.1); SODIUM 143 mmol/L (136-145); TOTAL BILIRUBIN 0.7 mg/dL (0.2-1.0)
[2018-01-13] MEDS: PREGABALIN 75 MG CAPSULE PO (08:03)
[2018-01-13] MEDS: LACTULOSE 20 GM/30 ML SOLUTION. PO (08:04)
[2018-01-13] MEDS: CELECOXIB 100 MG CAPSULE. PO (08:04)
[2018-01-13] MEDS: METHOCARBAMOL 750 MG TABLET PO (08:04)
[2018-01-13] MEDS: SOTALOL 80 MG TABLET. PO (08:04)
[2018-01-14 10:17] LABS: MRSA BY PCR Negative (Negative)
== END 2018-01-13 13:50 | disposition home or self-care (01) | DRG 296 ==
LOC: 6 SOUTH 01-12 17:17 → ER 15:07 → 1 WEST ICU 17:23
PROC: 5A12012 Performance of Cardiac Output, Single, Manual (ICD-10-PCS; principal; 2018-01-11)
DX: I46.9 Cardiac arrest, cause unspecified (principal); N17.0 Acute kidney failure with tubular necrosis; I42.9 Cardiomyopathy, unspecified; I95.9 Hypotension, unspecified; I50.9 Heart failure, unspecified; I11.0 Hypertensive heart disease with heart failure; I25.10 Atherosclerotic heart disease of native coronary artery without angina pectoris; M54.5 Low back pain; G89.29 Other chronic pain; F41.9 Anxiety disorder, unspecified; F32.9 Major depressive disorder, single episode, unspecified; M19.90 Unspecified osteoarthritis, unspecified site; Z96.612 Presence of left artificial shoulder joint; E78.5 Hyperlipidemia, unspecified; G47.30 Sleep apnea, unspecified; F03.90 Unspecified dementia, unspecified severity, without behavioral disturbance, psychotic disturbance, mood disturbance, and anxiety; G56.03 Carpal tunnel syndrome, bilateral upper limbs; Z96.651 Presence of right artificial knee joint; Z88.6 Allergy status to analgesic agent; Z82.49 Family history of ischemic heart disease and other diseases of the circulatory system; Z98.1 Arthrodesis status; Z95.0 Presence of cardiac pacemaker; Z86.73 Personal history of transient ischemic attack (TIA), and cerebral infarction without residual deficits
CPT/HCPCS: 36415; 36600; 51702; 70450; 71045; 71250; 74176; 80047; 80053; 81001; 82553; 82805; 83735; 83880; 84443; 84484; 85025; 85610; 87071; 87075; 87324; 87641; 89050; 92950; 93005; 93306; 94660; 95816; 96360; 99291-25; J2405; J3010; J7030

== ENCOUNTER → 2018-02-06 | Outpatient (CLI) | payer MEDICARE, OTHER ==
[2018-01-13 11:31] VITALS: BP 183/80
[~2018-02-06] MED LIST changes: +AMLO5TAB2 PO; +CARV12.52 PO; +CEFEPIME HCL IVP; +FERR325T14 PO; +LACT10SO35 PO; +LACT1CAP19 PO; +LACT1TAB11 PO; +LOSA50TA2 PO; +MULT1TAB52 PO; +POLY17PO3 PO; +POTA10TA12 PO; +SOTA80TA48 PO; -SPIR25TA3 PO; +SPIR25TA5 PO; +WARF1TAB69 PO; -WARF1TAB7 PO
[2018-02-06 14:31] LABS: BASO # 0.1 x10^3/uL (0.0-0.2); BASO % 1 % (0-3); EOS # 0.1 x10^3/uL (0.0-0.7); EOS % 2 % (0-3); HEMATOCRIT 37.3 % (36.0-47.0); HEMOGLOBIN 12.3 g/dL (12.0-15.5); LYMPH # 1.4 x10^3/uL (1.0-4.8); LYMPH % 23 % (24-48); MEAN CORPUSCULAR HEMOGLOBIN 27 pg (25-35); MEAN CORPUSCULAR HGB CONC 33 g/dL (31-37); MEAN CORPUSCULAR VOLUME 82 fL (79-100); MONO # 0.5 x10^3/uL (0.0-1.1); MONO % 9 % (0-9); NEUT % 65 % (31-73); PLATELET COUNT 147 x10^3/uL (140-400); RED BLOOD COUNT 4.58 x10^6/uL (3.50-5.40); RED CELL DISTRIBUTION WIDTH 17.5 % (11.5-14.5); WHITE BLOOD COUNT 6.1 x10^3/uL (4.0-11.0)
[2018-02-06 14:40] LABS: ALBUMIN 3.9 g/dL (3.4-5.0); CALCIUM 10.1 mg/dL (8.5-10.1); CREATININE 1.4 mg/dL (0.6-1.0); GFR 36.1; POTASSIUM 4.3 mmol/L (3.5-5.1)
[2018-02-06 14:48] LABS: PROTHROMBIN TIME PATIENT 13.5 SEC (11.7-14.0)
[2018-02-06 15:01] LABS: BILIRUBIN,URINE NEGATIVE (NEG); CLARITY,URINE CLOUDY; COLOR,URINE YELLOW; NITRITE,URINE NEGATIVE (NEG); PH,URINE 5.5; PROTEIN,URINE NEGATIVE (NEG-TRACE); UROBILINOGEN,URINE 0.2 mg/dL (0.2 mg/dL)
[2018-02-06 15:10] LABS: HYALINE CASTS, URINE MANY /HPF; SQUAMOUS EPITHELIAL CELL,UR FEW /LPF
[2018-02-06 15:11] LABS: BACTERIA,URINE 0 /HPF (0-FEW); RBC,URINE OCC /HPF (0-2)
--- NOTE | 2018-02-06 16:42 | RAD ---
EXAM: Chest, 2 views. HISTORY: Arthroplasty. Preoperative evaluation. Pain. COMPARISON: 01/11/2018 FINDINGS: Frontal and lateral views of the chest are obtained. There is no infiltrate, pleural effusion or pneumothorax. There is mild eventration of the right hemidiaphragm. The heart is normal in size. There is a cardiac pacemaker defibrillator with leads in expected position. There is instrumented fusion at the lower lumbar levels. There is slight increased thoracic kyphosis. There is mild hyperinflation due to emphysema. IMPRESSION: 1. No acute pulmonary finding. 2. Mild emphysema. Electronically signed by: Cherry Ch MD (02/06/2018 4:38 PM) [facility]
== END | disposition home or self-care (01) ==
LOC: SURGPAT 13:40
PROVIDERS: ATTEND Orthopaedic Surgery
DX: Z01.818 Encounter for other preprocedural examination (principal); J43.9 Emphysema, unspecified; M40.294 Other kyphosis, thoracic region; I25.2 Old myocardial infarction; I11.0 Hypertensive heart disease with heart failure; I50.9 Heart failure, unspecified; E78.5 Hyperlipidemia, unspecified; Z96.651 Presence of right artificial knee joint; Z96.612 Presence of left artificial shoulder joint; Z86.73 Personal history of transient ischemic attack (TIA), and cerebral infarction without residual deficits; Z88.8 Allergy status to other drugs, medicaments and biological substances; Z88.5 Allergy status to narcotic agent; Z88.6 Allergy status to analgesic agent
CPT/HCPCS: 36415; 71046; 80048; 81001; 82040; 85025; 85610; 85651; 85730; 87086; 87641

== ENCOUNTER 2018-02-18 19:48 | Emergency (ER) | payer MEDICARE, OTHER ==
[~2018-02-18] VITALS: Ht 157.5 cm; Wt 77.1 kg
[~2018-02-18 19:48] MED LIST changes: -AMLO5TAB2 PO; +AMLO5TAB7 PO; +APIX2.5T PO
[2018-02-18 20:05] VITALS: BP 170/83
--- NOTE | 2018-02-18 20:47 | PHYS DOC ---
Past Medical History Past Medical History: CAD, CHF, Unknown Additional Past Medical Histor: Depression, anxiety, chronic back pain Past Surgical History: Knee Replacement, Other Additional Past Surgical Histo: pacemaker/defib, back surgery, shoulder Alcohol Use: None Drug Use: None Adult General Chief Complaint Chief Complaint: WOUND CHECK HPI HPI Patient is a 82 year old female who presents today asking which and the dressing to her right knee, she states she had right knee replacement done on Tuesday this week by Dr. Sadler after previously knee replacement that resulted into an infection, she states she already underwent antibiotic treatment with spacers and they did re-implantation of the right knee on Tuesday. She states when she was discharged from the hospital they asked her to change the dressing it is soaks through but did not send her home with any dressing changes. She states she has noted some increased bleeding hence the reason she wants dressing change. She has a wound VAC. Patient denies any fever. Review of Systems Review of Systems Constitutional: Denies fever or chills [] Musculoskeletal: Need for dressing change to the right knee- post knee replacement Integument: Denies rash or skin lesions [] Neurologic: Denies headache, focal weakness or sensory changes [] All other systems were reviewed and found to be within normal limits, except as documented in this note. Allergies Allergies Allergies Coded Allergies Type Severity Reaction Last Updated Verified oxycodone Allergy Intermediate "MAKES HER CRAZY", TAKES LORTAB AT HOME Yes Physical Exam Physical Exam Constitutional: Well developed, well nourished, no acute distress, non-toxic appearance. [] Skin: Warm, dry, no erythema, no rash. [] Back: No tenderness, no CVA tenderness. [] Extremities: Right anterior knee with dressing consistent with knee replacement , there is a wound VAC on the proximal aspect of the dressing. The dressing has small amount of blood on the distal end. +2 right pedal pulse. Slightly Limited range of motion to the right knee due to pain. Neurologic: Alert and oriented X 3, normal motor function, normal sensory function, no focal deficits noted. [] Psychologic: Affect normal, judgement normal, mood normal. [] Current Patient Data Vital Signs Vital Signs Date Time Temp Pulse Resp B/P (MAP) Pulse Ox O2 Delivery O2 Flow Rate FiO2 02/18/18 20:05 99.0 74 170/83 (112) 96 Room Air 99.0 EKG EKG [] Radiology/Procedures Radiology/Procedures [] Course & Med Decision Making Course & Med Decision Making Pertinent Labs and Imaging studies reviewed. (See chart for details) This is a 82-year-old female patient presenting to the ED today requesting dressing change to the right knee post right knee replacement on Tuesday this week. Patient has small amount of bleeding on the distal end of the dressing. The proximal and has a wound VAC working. Consulted with patient's orthopedic Dr. Sadler. He states he did not expect patient and to be changing the dressing. We did apply a small pressure ABD dressing on the distal end of the wound over the original dressing. Dr. Sadler requested they contact the office next week and set up a follow-up appointment. Staff Physician Addendum: I was working in the ER during the course of this patient's visit. I was available for consultation as needed, but I was not directly involved in the care of this patient. Dragon Disclaimer Dragon Disclaimer This electronic medical record was generated, in whole or in part, using a voice recognition dictation system. Departure Departure Impression: Primary Impression: Wound of cheek Disposition: HOME, SELF-CARE Condition: STABLE Referrals: YEIMY LA MD (PCP) KEVIN SADLER MD call his office on Tuesday for a follow up appointment Patient Instructions: Wound Check Additional Instructions: We have evaluated your right knee. We spoke to your orthopedic doctor. He stated he does not expect you to be changing the dressing. You can apply pressure dressing if there is excessive bleeding as we showed do in the emergency room. Contact your orthopedic doctor's office on Tuesday and set up a follow-up appointment. Problem Qualifiers Primary Impression: Wound of cheek Encounter type: initial encounter Laterality: right Qualified Codes: S01.401A - Unspecified open wound of right cheek and temporomandibular area, initial encounter WILBERTO TOM APRN Feb 18, 2018 20:47 OREN DEUTSCH MD Feb 18, 2018 23:45
== END 2018-02-18 21:00 | disposition home or self-care (01) ==
LOC: ER 19:48
DX: S81.001D Unspecified open wound, right knee, subsequent encounter (principal); Z48.01 Encounter for change or removal of surgical wound dressing; I25.10 Atherosclerotic heart disease of native coronary artery without angina pectoris; I50.9 Heart failure, unspecified; G89.29 Other chronic pain; M54.9 Dorsalgia, unspecified; Z88.5 Allergy status to narcotic agent; Z95.0 Presence of cardiac pacemaker; X58.XXXD Exposure to other specified factors, subsequent encounter
CPT/HCPCS: 99281

== ENCOUNTER 2019-01-02 08:36 | Emergency (ER) | payer MEDICARE, OTHER ==
[~2019-01-02] VITALS: Ht 157.5 cm; Wt 77.1 kg
[~2019-01-02 08:36] MED LIST changes: +AMLO5TAB10 PO; -AMLO5TAB7 PO; +CARV12.511 PO; -CARV12.52 PO; -HYDR-2758 PO; +HYDR-2761 PO; -HYDR-2762 PO; +HYDR-2765 PO; -HYDR-2766 PO; +HYDR-2769 PO; +LOSA-73 PO; -LOSA50TA2 PO; +POLY17PO28 PO; -POLY17PO3 PO
--- NOTE | 2019-01-02 10:17 | PHYS DOC ---
Past Medical History Past Medical History: CAD, CHF, Unknown Additional Past Medical Histor: Depression, anxiety, chronic back pain Past Surgical History: Knee Replacement, Other Additional Past Surgical Histo: pacemaker/defib, back surgery, shoulder Alcohol Use: None Drug Use: None Adult General Chief Complaint Chief Complaint: OTHER COMPLAINTS HPI HPI Patient is a 83 year old female who presents to the ER with multiple complaints. Patient is a poor historian and provides poor timeline. Majority symptoms appear chronic in nature. Pt has been having ongoing chronic R ear wound/drainage x 1 month. Seen by both Dermatology and ENT. Started on mupirocin topical and an unknown drop. Spouse note that pt continuously picks at affected areas. No loss of hearing. No pain. Per Pt, director funeral did not feel it was shingles and has biopsied affected area. Pt also has "Burning Mouth Syndrome" for 13 years. Primary reason for presentation the ER is complaint of inside of her mouth "feeling slimy." Spouse requesting biopsy of her mouth being done. Patient denies any dental pain. Has not seen a dentist recently. Denies any gum bleeding. Denies any intraoral ulcers. Denies any recent exposure to eefv-uqew-zpb-mouth disease. Normal PO intake Review of Systems Review of Systems Constitutional: Denies fever or chills [] Eyes: Denies change in visual acuity, redness, or eye pain [] HENT: Denies nasal congestion or sore throat [] Respiratory: Denies cough or shortness of breath [] Cardiovascular: No chest pain, no palpitations, no LE edema GI: Denies abdominal pain, nausea, vomiting, bloody stools or diarrhea [] : Denies dysuria or hematuria [] Musculoskeletal: Denies back pain or joint pain [] Integument: +rash Neurologic: Denies headache, focal weakness or sensory changes [] Endocrine: Denies polyuria or polydipsia [] All other systems were reviewed and found to be within normal limits, except as documented in this note. Allergies Allergies Allergies Coded Allergies Type Severity Reaction Last Updated Verified oxycodone Allergy Intermediate "MAKES HER CRAZY", TAKES LORTAB AT HOME 12/30/15 Yes Physical Exam Physical Exam Constitutional: Well developed, well nourished, here stated age HENT: Normocephalic, atraumatic, small healing wounds that are superficial to right external ear. Some very mild surrounding swelling. Ear canals patent with intact TMs bilaterally. Mucosa intraoral region appears normal. There is no obvious ulcers are healing of skin. Patient does seem to have some mild gingivitis. Uvula midline. No submental sublingual swelling. Phonation clear. Eyes: PERRLA, EOMI, Neck: Normal range of motion, no stridor. [] Cardiovascular:Heart rate regular rhythm, no murmur [] Lungs & Thorax: Bilateral breath sounds clear to auscultation [] Skin: Small superficial/healing wounds to R periocular area. Back: No tenderness, no CVA tenderness. [] Extremities: No tenderness, no cyanosis, no clubbing, ROM intact, no edema. [] Neurologic: Alert and oriented X 3, no focal deficits noted. [] Psychologic: Affect normal, judgement normal, mood normal. [] Current Patient Data Vital Signs Vital Signs Date Time Temp Pulse Resp B/P (MAP) Pulse Ox O2 Delivery O2 Flow Rate FiO2 01/02/19 10:24 98.7 60 18 136/63 (87) 99 Room Air 98.7 EKG EKG [] Radiology/Procedures Radiology/Procedures [] Course & Med Decision Making Course & Med Decision Making Pertinent Labs and Imaging studies reviewed. (See chart for details) []Symptoms ongoing for greater than month with multiple specialty follow-up. Will place on Magic mouthwash for questionable early mild gingivitis although patient seems to indicate at this is her chronic burning mouth syndrome. Advised continue follow-up with ENT and dermatology. ER return precautions given. Patient verbalized understanding. All questions answered. Dragon Disclaimer Dragon Disclaimer This electronic medical record was generated, in whole or in part, using a voice recognition dictation system. Departure Departure Impression: Primary Impression: Gingivitis Disposition: HOME, SELF-CARE Condition: IMPROVED Referrals: YEIMY LA MD (PCP) Patient Instructions: Gingivitis Additional Instructions: Thank you for coming to [facility]. Please read the attached handouts. Please follow-up with your primary care physician. Continue Mupirocin topical cream three times a day for 7 days. STOP PICKING AT THE WOUNDS ON YOUR EAR AND FACE. Use the magic mouthwash as instructed. Follow up with ENT , your dentist and Dermatology. Return to the ER if your symptoms worsen or you have any other concerns. NILES LA DO Jan 02, 2019 10:17
[2019-01-02 10:24] VITALS: BP 136/63
== END 2019-01-02 10:48 | disposition home or self-care (01) ==
LOC: ER 08:36
DX: K05.10 Chronic gingivitis, plaque induced (principal); H92.21 Otorrhagia, right ear; I25.10 Atherosclerotic heart disease of native coronary artery without angina pectoris; I50.9 Heart failure, unspecified; F32.9 Major depressive disorder, single episode, unspecified; F41.9 Anxiety disorder, unspecified; G89.29 Other chronic pain; Z95.0 Presence of cardiac pacemaker; Z96.659 Presence of unspecified artificial knee joint; Z88.5 Allergy status to narcotic agent
CPT/HCPCS: 99281

== ENCOUNTER → 2019-11-30 | Outpatient (CLI) | payer MEDICARE, OTHER ==
[~2019-11-30] MED LIST changes: +CARV25TA PO; +LACT20SO PO; +MULT-445 PO; -MULT1TAB52 PO; +PILO5TAB11 PO; -TIZA4TAB PO; +TIZA4TAB2 PO; +WARF3TAB50 PO
[2019-11-30 16:05] LABS: BASO % 1 % (0-3); EOS # 0.1 x10^3/uL (0.0-0.7); EOS % 2 % (0-3); HEMATOCRIT 36.5 % (36.0-47.0); HEMOGLOBIN 12.3 g/dL (12.0-15.5); LYMPH # 1.2 x10^3/uL (1.0-4.8); LYMPH % 24 % (24-48); MEAN CORPUSCULAR HEMOGLOBIN 29 pg (25-35); MEAN CORPUSCULAR HGB CONC 34 g/dL (31-37); MEAN CORPUSCULAR VOLUME 85 fL (79-100); MONO # 0.5 x10^3/uL (0.0-1.1); MONO % 10 % (0-9); NEUT # 3.2 x10^3/uL (1.8-7.7); NEUT % 63 % (31-73); PLATELET COUNT 144 x10^3/uL (140-400); RED BLOOD COUNT 4.31 x10^6/uL (3.50-5.40); RED CELL DISTRIBUTION WIDTH 15.5 % (11.5-14.5); WHITE BLOOD COUNT 5.1 x10^3/uL (4.0-11.0)
[2019-11-30 16:18] LABS: PROTHROMBIN TIME PATIENT 13.8 SEC (11.7-14.0)
--- NOTE | 2019-11-30 16:28 | EKG ---
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
[2019-11-30 16:32] LABS: ALBUMIN 3.5 g/dL (3.4-5.0); C-REACTIVE PROTEIN 0.5 mg/L (0-3.3); CREATININE 1.2 mg/dL (0.6-1.0); GFR 42.9; POTASSIUM 4.1 mmol/L (3.5-5.1)
--- NOTE | 2019-11-30 17:10 | RAD ---
EXAM: CHEST PA LATERAL 11/30/2019 3:13 PM CLINICAL INDICATION:Preop chest x-ray COMPARISON:02/06/2018 TECHNIQUE:PA and lateral views of the chest FINDINGS:A triple lead pacemaker/AICD is unchanged. The cardiomediastinal silhouette is normal. Lungs are mildly hypoexpanded. No consolidation, pleural effusion, or pneumothorax. Left shoulder prosthesis noted. Mild wedging of several mid to lower thoracic vertebral bodies appears increased from prior exam. IMPRESSION: 1. No acute cardiopulmonary abnormality. 2. Suspected mild wedging of several mid to lower thoracic vertebral bodies, increased from prior exam. Electronically signed by: Geraldine Bowden MD (11/30/2019 5:06 PM) [id number]
[2019-12-01 02:08] LABS: HEMOGLOBIN A1C 5.6 % (4.8-5.6)
== END | disposition home or self-care (01) ==
LOC: SURGPAT 15:00
PROVIDERS: ATTEND Orthopaedic Surgery
DX: Z01.818 Encounter for other preprocedural examination (principal); Z11.59 Encounter for screening for other viral diseases
CPT/HCPCS: 36415; 71046; 80048; 82040; 82306; 83036; 85025; 85610; 85730; 86140; 87641; 93005; U0003

== ENCOUNTER 2019-12-04 11:40 | Inpatient (IN) | payer MEDICARE, OTHER ==
[~2019-12-04] VITALS: Ht 160 cm; Wt 80.7 kg
[2019-12-04] VITALS (7 sets, daily range): BP systolic 100–128; BP diastolic 52–75
[~2019-12-04 11:40] MED LIST changes: +ACETAMINOPHEN 500 MG TABLET PO PRN; +DEXAMETHASONE SOD PHOS 4 MG/ML VIAL ONE; +GABAPENTIN 300 MG CAPSULE. PO PRN; +IV RINGERS,LACTATED 1000ML 1,000 ML IV SCH; +LIDOCAINE 2% PF 5 ML VIAL. ONE; +MELOXICAM 7.5 MG TABLET PO PRN; +MORPHINE SULFATE 5 MG, KETOROLAC 30MG VIAL 30 MG, ROPIVacaine 0.5% PF 60 ML, EPINEPHrin... INT ART ONE; +ONDANSETRON PF 4 MG/2 ML VIAL. IV PRN; +ONDANSETRON PF 4 MG/2 ML VIAL. ONE; +PROCHLORPERAZINE 10 MG/2 ML VIAL. IV PRN; +PROPOFOL 10 MG/ML (20ML) VIAL. IV ONE; -WARF3TAB50 PO; +ceFAZolin SODIUM IV Push 1 GM VIAL. IVP PRN; +fentaNYL PF VIAL 100 MCG/2 ML VIAL IV PRN
[2019-12-04] MEDS ORDERED: ceFAZolin 2GM PREMIX 2 GM/50 ML BAG IV ONE (12:00)
[2019-12-04 13:09] LABS: PROTHROMBIN TIME PATIENT 13.9 SEC (11.7-14.0)
[2019-12-04] MEDS ORDERED: PHENYLEPHRINE in 0.9% NACL PF 1 MG/10 ML SYRINGE. IV ONE (13:31)
[2019-12-04] MEDS ORDERED: VANCOMYCIN 1 GM VIAL. ONE (14:12)
[2019-12-04] MEDS ORDERED: fentaNYL PF VIAL 100 MCG/2 ML VIAL ONE (14:33)
[2019-12-04] MEDS ORDERED: SEVOFLURANE > 120 MINUTES. IH ONE (15:15)
[2019-12-04] MEDS ORDERED: IV NORMAL SALINE 1000ML BAG 1,000 ML IV SCH (15:28)
[2019-12-04] MEDS ORDERED: ZOLPIDEM 5 MG TABLET. PO PRN (15:30)
[2019-12-04] MEDS ORDERED: PROCHLORPERAZINE 5 MG TABLET. PO PRN (15:30)
[2019-12-04] MEDS ORDERED: 0.9 % SODIUM CHLORIDE 10 ML DISP.SYRIN. IV PRN (15:30)
[2019-12-04] MEDS ORDERED: diphenhydrAMINE 50 MG/ML VIAL IVP PRN (15:30)
[2019-12-04] MEDS ORDERED: CALCIUM CARBONATE 500 MG TAB.CHEW PO PRN (15:30)
[2019-12-04] MEDS ORDERED: fentaNYL PF VIAL 100 MCG/2 ML VIAL IVP PRN (15:30)
[2019-12-04] MEDS ORDERED: DEXTROSE 50% 25 GM / 50ML DISP.SYRIN. IV PRN (15:30)
[2019-12-04] MEDS ORDERED: MORPHINE SULFATE 2 MG/ML VIAL. IVP PRN (15:30)
--- NOTE | 2019-12-04 15:55 | PDOC4 ---
Operative Note Operative Note Date of surgery: 12/04/2019 Preoperative diagnosis: History right total knee, right patella fracture with dissociation patellar component Postoperative diagnosis: Same Operative procedure: Revision patellar component right total knee and excision of medial patellar fracture fragment Surgeon: Doroteo Collar Worker: Mahin Anesthesia: General Estimated blood loss: 100 cc Complications: None Operative indications: Please see my orthopedic clinic note for detailed operative indications Operative text: Patient was identified procedure verified and after adequate amounts of general anesthesia were administered the right lower extremity was prepped and draped in standard sterile fashion with a thigh tourniquet. After timeout was performed patient procedure identified and verified a midline incision was made along with a medial parapatellar approach. She was noted as expected to have dissociation of her patellar component as she had a midline longitudinal fracture of the patella with the major fragment directed significantly laterally and the minor fragment unable to accommodate a revision component. The medial portion of bone was excised a lateral release was carried out to centralize the tendon and remaining adequate portion of bone which was debrided back to stable bony tissue and a revision 32 mm [employer] patella was found to have adequate seating and in addition to the normal drilling of the central peg and planned cementation I supplemented fixation with drilling for holes for a #2 Ethibond suture to tie around a prominence of the superior medial bone and also supplement fixation distally. Patella was cemented with poly- methylmethacrylate cement and was well-seated excess cement was removed and the vastus medialis was advanced and medial tissues reefed to ensure alignment and tracking. Ethibond suture was used more deep in a mattress fashion and reinforced with a simple fashion medially and superiorly and the previous fixation sutures were used to tension tissue laterally to obtain ideal tracking and alignment. The lateral release was unable to be closed completely however closure accomplished proximally and distally to again ensure ideal alignment and tracking which was demonstrated throughout her range of motion. After thorough irrigation carried out normal saline solution 1 g vancomycin was placed in the joint surrounding tissue was injected with the intra-articular mixture tourniquet was deflated bleeding points controlled by electrocautery subcutaneous closure with buried Vicryl suture skin closure with varinder and a yessenia dressing was applied with Acticoat. Toes were noted be warm pink following deflation of the tourniquet she was placed in a hinged knee brace and returned to recovery room stable condition KEVIN MOSS MD Dec 04, 2019 15:55
[2019-12-04] MEDS ORDERED: WARFARIN 7.5 MG TABLET. PO ONE (16:00)
--- NOTE | 2019-12-04 16:12 | RAD ---
KNEE RIGHT 2V History: Reason: POST OP / Spl. Instructions: In brace / History: Technique: 2 views right knee. Comparison: November 28, 2019 Findings: Interval postoperative changes right knee. Expected postoperative findings subcutaneous gas. Right total knee arthroplasty. Normal alignment. No fracture. Impression: 1. Interval right knee postoperative changes. 2. Right total knee arthroplasty. Electronically signed by: Jarod Huggins DO (12/04/2019 4:09 PM) [facility]
[2019-12-04] MEDS ORDERED: HYDROcodone/APAP 7.5/325MG 1 TAB TABLET PO PRN (16:15)
--- NOTE | 2019-12-04 17:07 | NUR ---
1630 Rec'd from PACU per bed, alert & drowsy, states in pain but falls right back to sleep, ice pack to RLE, hinged brace in place, IVF infusing into right hand, PAOLO/SCD & SHIVA in place for DVT prevention, family members at bedside, call light in reach, side rails up x2, see assessment
[2019-12-04] MEDS: FERROUS SULFATE 325 MG TABLET. PO SCH (17:19)
[2019-12-04] MEDS: HYDROcodone/APAP 7.5/325MG 1 TAB TABLET PO PRN (17:28)
[2019-12-04] MEDS: ONDANSETRON ODT 4 MG TAB.RAPDIS. PO SCH (18:00)
[2019-12-04] MEDS: ONDANSETRON PF 4 MG/2 ML VIAL. IVP SCH (18:00)
--- NOTE | 2019-12-04 18:00 | NUR ---
Zofran held no nausea or vomiting noted
[2019-12-04] MEDS ORDERED: tiZANidine 4 MG TABLET. PO PRN (19:45)
[2019-12-04] MEDS: PILOCARPINE 5 MG TABLET. PO SCH (21:11)
[2019-12-04] MEDS: LACTOBACILLUS RHAMNOSUS GG 1 CAPSULE. PO SCH (21:11)
[2019-12-04] MEDS: PREGABALIN 75 MG CAPSULE PO SCH (21:12)
[2019-12-05] MEDS: HYDROcodone/APAP 7.5/325MG 1 TAB TABLET PO PRN ×3 (02:00→21:38)
[2019-12-05 02:20] VITALS: BP 113/65
[2019-12-05 03:21] LABS: HEMATOCRIT 33.4 % (36.0-47.0); HEMOGLOBIN 11.3 g/dL (12.0-15.5)
[2019-12-05 03:35] LABS: PROTHROMBIN TIME PATIENT 16.9 SEC (11.7-14.0)
[2019-12-05] MEDS ORDERED: MAGNESIUM HYDROXIDE 2,400 MG/30 ML ORAL.SUSP. PO PRN (06:00)
[2019-12-05] MEDS: ONDANSETRON PF 4 MG/2 ML VIAL. IVP SCH ×3 (06:00→12:00)
[2019-12-05] MEDS: ONDANSETRON ODT 4 MG TAB.RAPDIS. PO SCH ×3 (06:06→12:00)
[2019-12-05 06:13] VITALS: BP 97/51
[2019-12-05] MEDS: CARVEDILOL 12.5 MG TABLET. PO SCH ×2 (08:00→16:54)
[2019-12-05] MEDS: PILOCARPINE 5 MG TABLET. PO SCH ×3 (08:55→21:38)
[2019-12-05] MEDS: PREGABALIN 75 MG CAPSULE PO SCH ×2 (08:55→21:38)
[2019-12-05] MEDS: MULTIVITAMIN with MINERAL TABLET. PO SCH (08:55)
[2019-12-05] MEDS: LACTOBACILLUS RHAMNOSUS GG 1 CAPSULE. PO SCH ×2 (08:55→21:38)
[2019-12-05] MEDS: SENNOSIDES/DOCUSATE 8.6/50MG TABLET. PO SCH (08:56)
[2019-12-05] MEDS: FERROUS SULFATE 325 MG TABLET. PO SCH ×2 (08:56→16:53)
[2019-12-05] MEDS: POTASSIUM CHLORIDE 10 MEQ TABLET.ER. PO SCH (08:56)
[2019-12-05] MEDS ORDERED: FERROUS SULFATE 325 MG TABLET. PO SCH (09:00)
[2019-12-05] MEDS: FUROSEMIDE 40 MG TABLET. PO SCH (09:00)
[2019-12-05] MEDS ORDERED: DULoxetine HCL 30 MG CAPSULE.DR PO SCH (09:00)
[2019-12-05] MEDS ORDERED: NON FORMULARY ITEM (Multivitamin (Multivitamins) 1 TAB) PO SCH (09:00)
[2019-12-05] MEDS: LACTULOSE 20 GM/30 ML SOLUTION. PO SCH (09:04)
--- NOTE | 2019-12-05 10:55 | NUR ---
Pharmacy Warfarin Dosing Note S:Pharmacy consulted to assist with anticoagulation therapy started 12/04/19 with target INR: 1.6 - 2.5 O:LIA DIAZ is a 84 year old F with a patella fracture repair LABS: Last INR: 1.4 Last HGB: 11.3 Last HCT: 33.4 Last PLT: - Last dose of 7.5 mg given on 12/04/19 at 1716 Vitamin K given: N Drug Interaction Changes: New Interacting Drug Ongoing Drug Interactions: duloxetine A:INR of 1.4 is below desired range. Target range for this patient is: 1.6 - 2.5 P: Warfarin 1 mg today at 1600 Bridge Therapy: None Next INR due 12/06/19 Pharmacy anticoagulation service will continue to follow. [facility], 12/05/19 [id number]
[2019-12-05] MEDS ORDERED: ONDANSETRON PF 4 MG/2 ML VIAL. IVP PRN (12:00)
[2019-12-05] MEDS ORDERED: ONDANSETRON ODT 4 MG TAB.RAPDIS. PO PRN (12:00)
[2019-12-05 12:06] VITALS: BP 117/67
[2019-12-05] MEDS: SPIRONOLACTONE 25 MG TABLET PO SCH (13:07)
--- NOTE | 2019-12-05 14:10 | NUR ---
Lisa is doing well. pain has been controlled with lortab. was able to wean off oxygen at lunch time. daughter is visiting. she remains hypotensive; Coreg held. will continue to monitor. she has brace on steady gait with walker. she has good sensation, pulses and motion in her lower extremities.
[2019-12-05 15:00] VITALS: BP 125/74
[2019-12-05] MEDS ORDERED: BISACODYL 10 MG SUPP.RECT. PR PRN (16:00)
[2019-12-05] MEDS ORDERED: WARFARIN 1 MG TABLET. PO ONE (16:00)
[2019-12-05 16:52] VITALS: BP 148/60
[2019-12-05 19:00] VITALS: BP 138/68
--- NOTE | 2019-12-05 20:34 | PDOC ---
PROGRESS NOTES Subjective Subjective Problems overnight: Lisa reports doing a lot better later today than last night she got up and around some in her brace with physical therapy with a walker for assist and pain is now well controlled she feels it slightly over the right kneecap area Objective Vital Signs Vital Signs Date Time Temp Pulse Resp B/P (MAP) Pulse Ox O2 Delivery O2 Flow Rate FiO2 12/05/19 16:54 69 148/60 12/05/19 15:00 97.9 18 92 Room Air 97.9 12/05/19 07:56 1.0 Physical Exam Marie dressing is clean dry intact brace is well fitting distal neurovascular status intact she can plantar and dorsiflex and can contract her quadriceps isometrically Labs Laboratory Tests Test 12/04/19 12:00 12/05/19 03:05 Prothrombin Time 13.9 SEC (11.7-14.0) 16.9 SEC (11.7-14.0) Prothromb Time International Ratio 1.1 (0.8-1.1) 1.4 (0.8-1.1) Hemoglobin 11.3 g/dL (12.0-15.5) Hematocrit 33.4 % (36.0-47.0) Mean Corpuscular Hemoglobin Concent 34 g/dL (31-37) Laboratory Tests Test 12/05/19 03:05 Hemoglobin 11.3 g/dL (12.0-15.5) Hematocrit 33.4 % (36.0-47.0) Mean Corpuscular Hemoglobin Concent 34 g/dL (31-37) Prothrombin Time 16.9 SEC (11.7-14.0) Prothromb Time International Ratio 1.4 (0.8-1.1) Imaging Postop x-rays show good alignment of her patella with well aligned patellar button status post revision Assessment Assessment POD#1 patellar button revision for fracture and extensor realignment Plan Plan of Care She is doing much better today Continue weightbearing as tolerated in extension and brace Mobilize with physical therapy and planned discharge tomorrow likely putting off home physical therapy until some of her restrictions are lifted somewhat more Justicifation of Admission Dx: Justifications for Admission: Justification of Admission Dx: Yes KEVIN MOSS MD Dec 05, 2019 20:34
[2019-12-05] MEDS: DULoxetine HCL 30 MG CAPSULE.DR PO SCH (22:24)
[2019-12-06 04:45] LABS: HEMATOCRIT 30.9 % (36.0-47.0); HEMOGLOBIN 10.3 g/dL (12.0-15.5)
[2019-12-06 04:53] LABS: PROTHROMBIN TIME PATIENT 31.7 SEC (11.7-14.0)
[2019-12-06] MEDS: HYDROcodone/APAP 7.5/325MG 1 TAB TABLET PO PRN (06:39)
[2019-12-06 07:00] VITALS: BP 91/69
--- NOTE | 2019-12-06 07:27 | PDOC ---
PROGRESS NOTES Subjective Subjective Problems overnight: More knee pain today, per her overnight nurse she was up and around a lot without asking for help to the bathroom etc., seems a little bit confused this morning Objective Vital Signs Vital Signs Date Time Temp Pulse Resp B/P (MAP) Pulse Ox O2 Delivery O2 Flow Rate FiO2 12/06/19 06:39 18 92 Room Air 12/05/19 19:00 98.3 80 138/68 (91) 98.3 12/05/19 07:56 1.0 Physical Exam On exam her extensor mechanism is intact and well tracking distal neurovascular status intact no drainage on the yessenia dressing no redness or erythema, brace had slid down a little bit perhaps an inch I repositioned and readjusted it Labs Laboratory Tests Test 12/04/19 12:00 12/05/19 03:05 12/06/19 04:27 Prothrombin Time 13.9 SEC (11.7-14.0) 16.9 SEC (11.7-14.0) 31.7 SEC (11.7-14.0) Prothromb Time International Ratio 1.1 (0.8-1.1) 1.4 (0.8-1.1) 3.1 (0.8-1.1) Hemoglobin 11.3 g/dL (12.0-15.5) 10.3 g/dL (12.0-15.5) Hematocrit 33.4 % (36.0-47.0) 30.9 % (36.0-47.0) Mean Corpuscular Hemoglobin Concent 34 g/dL (31-37) 33 g/dL (31-37) Laboratory Tests Test 12/06/19 04:27 Hemoglobin 10.3 g/dL (12.0-15.5) Hematocrit 30.9 % (36.0-47.0) Mean Corpuscular Hemoglobin Concent 33 g/dL (31-37) Prothrombin Time 31.7 SEC (11.7-14.0) Prothromb Time International Ratio 3.1 (0.8-1.1) Assessment Assessment POD#2 revision patellar component due to fracture and realignment extensor mechanism Plan Plan of Care I emphasized for her to ask for more help as she is getting around a lot on her own probably doing a little bit too much although getting around fairly well She said her daughter is going to be coming some to take care of her but a little bit confused this morning as far as how much her daughter would be there but her is certainly there to help and able Coumadin per anticoagulation clinic on discharge Physical therapy likely not formally necessary due to her just being able to do isometrics leg lifts and ankle pumps until follow-up with me Justicifation of Admission Dx: Justifications for Admission: Justification of Admission Dx: Yes KEVIN MOSS MD Dec 06, 2019 07:27
[2019-12-06] MEDS ORDERED: WARF3TAB50 PO (07:30)
--- NOTE | 2019-12-06 07:33 | SNU/HH DC ---
DISCHARGE WITH HOME HEALTH DISCHARGE INFORMATION: Condition on Discharge: Stable CODE STATUS: Code Status: Full HOME HEALTH: Face to Face: I certify this patient is under my care and that I, or a nurse practitioner or physician's dyer assistant working with me, had a face to face encounter that meets the physician face to face encounter requirements with this patient on [12/06/19]. Medical Complications: FX, S/P Joint Replacement RN For Eval/Treatment: Yes Pt Meets Homebound Status: Limited distance walking, Other: (Immobilizer to protect patellar reconstruction) POST DISCHARGE ORDERS: Activity Instructions for Disc: Walk in house (With knee brace and walker for support, may do leg lift isometrics and ankle pumps, no knee motion at present) Weight Bearing Status after Di: As tolerated (Weightbearing as tolerated only with knee in brace locked in extension) Bathing Instructions: Shower-keep dressing dry, No Tub Bath until see Wound/Incision Care: Ice to area for comfort, Keep wound elevated, Do not change dressing (Maintain yessenia dressing call if saturated) FOLLOW-UP: Follow up with: Dr. Sadler 10 days Warfarin Follow UP: Testing per [facility] pharmacy anticoagulation clinic TREATMENT/EQUIPMENT ORDERS: Adaptive Equipment Issued: Front wheeled walker CERTIFICATION STATEMENT: Certification Statement: Certification Statement: Based on the above finding, I certify that this patient is confined to the home and needs intermittent senior care care, physical therapy and/or speech therapy, or continues to need occupational therapy.~ This patient is under my care, and I have initiated the establishment of the plan of care.~ This patient will be followed by myself or a community physician who will periodically review the plan of care. Home Meds Active Scripts Hydrocodone Bit/Acetaminophen (HYDROCODONE-APAP 7.5-325 ) 1 Each Tablet, 1 TAB PO Q4HRS PRN for PAIN, #60 TAB 0 Refills Prov:BRICE PATEL MD 11/24/17 Reported Medications Carvedilol (COREG) 25 Mg Tablet, 25 MG PO BIDWMEALS for CARDIAC, TAB 11/30/19 Lactulose (LACTULOSE) 20 Gm/30 Ml Solution, 20 GM PO DAILY for *, MISC 11/30/19 Pilocarpine Hcl (SALAGEN) 5 Mg Tablet, 5 MG PO TID for DRY MOUTH, TAB 11/30/19 Duloxetine Hcl (CYMBALTA) 60 Mg Capsule.dr, 60 MG PO DAILY for dry mouth syndrome, CAP 02/06/18 Spironolactone (SPIRONOLACTONE) 25 Mg Tablet, 1 TAB PO DAILY for fluid , #90 TAB 1 Refill 01/13/18 Potassium Chloride (POTASSIUM CHLORIDE ) 10 Meq Tab.sr.24h, 99 MG PO DAILY for supplement , TAB.SR 01/13/18 Multivitamin (MULTIVITAMINS) 1 Each Tablet, 1 TAB PO DAILY for supplement, #90 TAB 3 Refills 01/13/18 Lactobacillus Acidophilus (ACIDOPHILUS) 1 Each Tab.chew, 1 EACH PO BID for supplement, TAB.CHEW 01/13/18 Furosemide (FUROSEMIDE) 40 Mg Tablet, 1 TAB PO DAILY for water retention, #30 TAB 5 Refills 01/13/18 Ferrous Sulfate (FERROUS SULFATE) 325 Mg Tablet, 1 TAB PO DAILY for supplement, #30 TAB 3 Refills 01/13/18 Tizanidine Hcl (TIZANIDINE HCL) 4 Mg Tablet, 4 MG PO HS PRN for MUSCLE SPASMS, TAB 09/17/16 Pregabalin (LYRICA) 150 Mg Capsule, 150 MG PO BID for dry mouth syndrome for 30 Days, CAP Next dose tonight 9pm 11/21/13 KEVIN SADLER MD Dec 06, 2019 07:33
[2019-12-06 08:00] VITALS: BP 91/69
[2019-12-06] MEDS: CARVEDILOL 12.5 MG TABLET. PO SCH (08:00)
[2019-12-06] MEDS: LACTOBACILLUS RHAMNOSUS GG 1 CAPSULE. PO SCH (08:57)
[2019-12-06] MEDS: DULoxetine HCL 30 MG CAPSULE.DR PO SCH (08:57)
[2019-12-06] MEDS: FERROUS SULFATE 325 MG TABLET. PO SCH (08:57)
[2019-12-06] MEDS: SENNOSIDES/DOCUSATE 8.6/50MG TABLET. PO SCH (08:58)
[2019-12-06] MEDS: MULTIVITAMIN with MINERAL TABLET. PO SCH (08:58)
[2019-12-06] MEDS: POTASSIUM CHLORIDE 10 MEQ TABLET.ER. PO SCH (08:58)
[2019-12-06] MEDS: PILOCARPINE 5 MG TABLET. PO SCH (08:59)
[2019-12-06] MEDS: PREGABALIN 75 MG CAPSULE PO SCH (08:59)
[2019-12-06] MEDS: LACTULOSE 20 GM/30 ML SOLUTION. PO SCH (09:00)
[2019-12-06] MEDS: SPIRONOLACTONE 25 MG TABLET PO SCH (09:00)
[2019-12-06] MEDS: FUROSEMIDE 40 MG TABLET. PO SCH (09:00)
--- NOTE | 2019-12-06 10:22 | DS ---
DATE OF DISCHARGE: 12/06/2019 ORTHOPEDIC DISCHARGE SUMMARY PRINCIPAL DIAGNOSIS: Right knee patellar fracture with dissociation of the patellar component. DISCHARGE DIAGNOSIS: Right knee patellar fracture with dissociation of the patellar component. PROCEDURE: Revision of right patellar component, excision of the medial fracture fragment and extensor realignment reconstruction. DISPOSITION MEDICATIONS: Include continue hydrocodone 7.5/325 one p.o. q.4 hours p.r.n. pain, dispensed #60, warfarin as directed by anticoagulation clinic. Resume other preoperative medications. Follow up with Dr. Sadler in 2 weeks. ACTIVITY: Weightbearing as tolerated with brace locked in extension. May do isometric leg lifts and ankle pumps. No knee motion. Maintain SABINO dressing, call if saturated, report any other redness, drainage, fever, chills, uncontrolled pain or other problems. HOSPITAL COURSE: The patient underwent uncomplicated patellar revision with realignment of the extensor mechanism. Postoperatively, she was placed in a hinged knee brace locked in extension. Her first night postoperatively was difficult just in terms of pain control, which was much better on postoperative day #1 where she got up and around well with physical therapy. The evening of postoperative day #1 although she remained medically stable, got up and around without assistance, going to bed and reported increased pain on the morning of postoperative day #2. She otherwise was able to transfer and ambulate with the assistance of a walker with her brace locked in extension. She indicates that her will be home and her daughter was going to be available to help as well. Accordingly, plans were made to discharge her to home with home health and no formal physical therapy as she would just do isometric leg lifts and ankle pumps on her own until further healing is accomplished with her knee. Followup again in 2 weeks. Please note that this is a discharge home with home health nursing for evaluation of her Coumadin, which will be followed by [facility] anticoagulation clinic pharmacy. KEVIN SADLER MD DR: EDGAR/radha JOB#: [id number] / [id number]
--- NOTE | 2019-12-06 13:30 | NUR ---
Discharge instructions given with prescription. Both pt and daughter verbalized understanding. Discharged home.
== END 2019-12-06 13:30 | disposition home health service (06) | DRG 468 ==
LOC: SURG 11:40 → 4 SOUTHEST 16:01 → 4 NORTH 12-05 14:48
PROVIDERS: ADMIT Orthopaedic Surgery; ATTEND Orthopaedic Surgery
PROC: 0SWC0JC Revision of Synthetic Substitute in Right Knee Joint, Patellar Surface, Open Approach (ICD-10-PCS; principal; 2019-12-04 13:00)
DX: S82.001A Unspecified fracture of right patella, initial encounter for closed fracture (principal); X58.XXXA Exposure to other specified factors, initial encounter; Y93.89 Activity, other specified; Y92.89 Other specified places as the place of occurrence of the external cause; Y99.8 Other external cause status
CPT/HCPCS: 36415; 73560; 85014; 85018; 85610; 86850; 86900; 86901; A7015; C1713; J0171; J0690; J1100; J1885; J2270; J2370; J2405; J2704; J2795; J3010; J3370; J7030; J7120; 97116-GP; 97150-GP; 97530-GP; 97535-GO; C1769; G0378

== ENCOUNTER 2021-07-02 14:59 | Emergency (ER) | payer MEDICARE, OTHER ==
[~2021-07-02] VITALS: Ht 157.5 cm; Wt 86.0 kg
[~2021-07-02 14:59] MED LIST changes: -ACETAMINOPHEN 500 MG TABLET PO PRN; +AMLO-186 PO; -AMLO5TAB10 PO; +CYCL10TA19 PO; -CYCL10TA2 PO; -DEXAMETHASONE SOD PHOS 4 MG/ML VIAL ONE; -DULO60CA6 PO; +DULO60CA7 PO; -GABAPENTIN 300 MG CAPSULE. PO PRN; -IV RINGERS,LACTATED 1000ML 1,000 ML IV SCH; -LIDOCAINE 2% PF 5 ML VIAL. ONE; -MELOXICAM 7.5 MG TABLET PO PRN; +METH-561 PO; -METH500T7 PO; -MORPHINE SULFATE 5 MG, KETOROLAC 30MG VIAL 30 MG, ROPIVacaine 0.5% PF 60 ML, EPINEPHrin... INT ART ONE; -ONDANSETRON PF 4 MG/2 ML VIAL. IV PRN; -ONDANSETRON PF 4 MG/2 ML VIAL. ONE; -POLY17PO28 PO; +POLY17PO52 PO; -PROCHLORPERAZINE 10 MG/2 ML VIAL. IV PRN; -PROPOFOL 10 MG/ML (20ML) VIAL. IV ONE; +TIZA-75 PO; -TIZA4TAB2 PO; +WARF3TAB50 PO; -ceFAZolin SODIUM IV Push 1 GM VIAL. IVP PRN; -fentaNYL PF VIAL 100 MCG/2 ML VIAL IV PRN
[2021-07-02] MEDS ORDERED: fentaNYL PF VIAL 100 MCG/2 ML VIAL IVP ONE (15:30)
--- NOTE | 2021-07-02 15:47 | RAD ---
EXAM: Chest, single view. HISTORY: Pain. COMPARISON: 11/30/2019 FINDINGS: A frontal view of the chest is obtained. There are chronic appearing interstitial changes. There is stable mild elevation of the right hemidiaphragm. There is no consolidation, pleural effusio n or pneumothorax. There is a stable chronic silhouette and cardiac pacemaker defibrillator. There is a left shoulder arthroplasty. IMPRESSION: Stable chronic appearing interstitial changes. Electronically signed by: Cherry Ch MD (07/02/2021 3:44 PM) [id number]
--- NOTE | 2021-07-02 15:57 | EKG ---
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
[2021-07-02 15:58] LABS: BASO % 1 % (0-3); EOS # 0.1 x10^3/uL (0.0-0.7); EOS % 1 % (0-3); HEMATOCRIT 37.5 % (36.0-47.0); HEMOGLOBIN 12.2 g/dL (12.0-15.5); LYMPH % 18 % (24-48); MEAN CORPUSCULAR HEMOGLOBIN 28 pg (25-35); MEAN CORPUSCULAR HGB CONC 33 g/dL (31-37); MEAN CORPUSCULAR VOLUME 85 fL (79-100); MONO # 0.4 x10^3/uL (0.0-1.1); MONO % 7 % (0-9); NEUT % 73 % (31-73); PLATELET COUNT 151 x10^3/uL (140-400); RED BLOOD COUNT 4.43 x10^6/uL (3.50-5.40); WHITE BLOOD COUNT 5.5 x10^3/uL (4.0-11.0)
[2021-07-02 16:26] LABS: CREATININE 0.8 mg/dL (0.6-1.0); GFR 68.3; POTASSIUM 4.4 mmol/L (3.5-5.1)
[2021-07-02 16:35] LABS: ALBUMIN 3.5 g/dL (3.4-5.0); ALBUMIN/GLOBULIN RATIO 1.2 (1.0-1.7); MAGNESIUM 2.5 mg/dL (1.8-2.4); PHOSPHORUS 3.7 mg/dL (2.6-4.7); TOTAL BILIRUBIN 0.5 mg/dL (0.2-1.0); TOTAL PROTEIN 6.5 g/dL (6.4-8.2)
[2021-07-02 16:36] LABS: CREATINE KINASE 54 U/L (26-192)
[2021-07-02] MEDS ORDERED: CONTRAST GIVEN. MC PRN (16:45)
[2021-07-02] MEDS ORDERED: IOHEXOL 300 MG/ML 100ML VIAL. IV ONE (16:45)
[2021-07-02 16:47] LABS: INFLUENZA A PATIENT NEGATIVE (NEGATIVE); INFLUENZA B PATIENT NEGATIVE (NEGATIVE)
--- NOTE | 2021-07-02 17:20 | RAD ---
EXAMINATION: CT abdomen and pelvis with IV contrast. INDICATION:85 years, Female, right lower quadrant abdominal pain, fever and diarrhea. TECHNIQUE: Axial CT images of the abdomen and pelvis were obtained. Coronal and sagittal reformatted performed. COMPARISON: 07/16/2016. Exposure: One or more of the following individualized dose reduction techniques were utilized for thi s examination: 1. Automated exposure control 2. Adjustment of the mA and/or kV according to patient size 3. Use of iterative reconstruction technique. FINDINGS: LOWER CHEST: Dependent subsegmental atelectasis in bibasilar lungs. Partially visualized pacemaker lead wires. ABDOMEN/PELVIS: Normal size and morphology of the liver with homogeneous enhancement. No suspicious focal hepatic les ion. Unremarkable gallbladder. No biliary ductal dilation. Unremarkable spleen. Severe atrophic pancr eas. No adrenal nodule. No hydronephrosis or nephrolithiasis in either kidney. No bowel obstruction. Normal appendix. No lymphadenopathy in the abdomen or pelvis by size criteria. No pneumoperitoneum or ascites. Severe aortoiliac atherosclerotic calcifications without significant narrowing. Mesenteric arteries and portal veins are patent. Retroaortic left renal vein. Decompressed urinary bladder which limits evaluation. Unremarkable uterus. No suspicious pelvic masses. Coarse calcifications in the ri ght ovary. MUSCULOSKELETAL STRUCTURES: Severe multilevel degenerative changes in the spine. Diffuse osteopenia. Minimal retrolisthesis of L1 over L2 and L2 over L3. Grade 1 anterolisthesis of L4 over L5. Laminectomy changes with posterior encarnacion rdware fusion at L4-5. IMPRESSION: 1. No acute abnormality in the abdomen or pelvis. 2. Other chronic/incidental findings, as above. Electronically signed by: Andrea Jenkins MD (07/02/2021 5:18 PM) [id number]
[2021-07-02 18:45] LABS: BILIRUBIN,URINE NEGATIVE (NEG); CLARITY,URINE CLEAR; COLOR,URINE YELLOW; NITRITE,URINE NEGATIVE (NEG); PROTEIN,URINE NEGATIVE (NEG-TRACE); UROBILINOGEN,URINE 0.2 mg/dL (0.2 mg/dL)
[2021-07-02 19:05] LABS: BACTERIA,URINE FEW /HPF (0-FEW)
[2021-07-02 19:06] LABS: RBC,URINE 0 /HPF (0-2); WBC,URINE RARE /HPF (0-4)
--- NOTE | 2021-07-02 19:16 | PHYS DOC ---
Past Medical History Past Medical History: CAD, CHF, Unknown Additional Past Medical Histor: Pacemaker Past Surgical History: Pacemaker Additional Past Surgical Histo: pacemaker/defib, back surgery, shoulder Smoking Status: Never Smoker Alcohol Use: None Drug Use: None General Adult EDM: Chief Complaint: ABDOMINAL PAIN HPI: HPI: Patient is a 85-year-old female presents to the emergency department complaining of 1 bout of diarrhea last night. Reported abdominal discomfort with low back pains over the past week. Patient reports last bowel movement 3 days ago that was hard. Patient reports an 8 out of 10 lower abdominal pain that radiates to her back. Patient denies increased urinary frequency, difficulties with urination, hematuria, or other dysuria. Patient reported a fever at home however does not remember the exact temperature, denies chills. Patient denies chest pains or shortness of breath. Denies chest or nasal congestion. Patient reports receiving the COVID-19 virus vaccination series and booster however has not received a flu vaccination this season. Patient denies other physical complaints or physical concerns. Review of Systems: Review of Systems: 14 body systems of review of systems have been reviewed. See HPI for pertinent positives and negative responses, otherwise all other systems are negative, nonpertinent or noncontributory. Constitutional: Negative except as outlined in HPI above. Skin: Negative except as outlined in HPI above. Eyes: Negative except as outlined in HPI above. HENT: Negative except as outlined in HPI above. Respiratory: Negative except as outlined in HPI above. Cardiovascular: Negative except as outlined in HPI above. GI: Negative except as outlined in HPI above. : Negative except as outlined in HPI above. Musculoskeletal: Negative except as outlined in HPI above. Integument: Negative except as outlined in HPI above. Neurologic: Negative except as outlined in HPI above. Endocrine: Negative except as outlined in HPI above. Lymphatic: Negative except as outlined in HPI above. Psychiatric: Negative except as outlined in HPI above. Heart Score: C/O Chest Pain: No Risk Factors: Risk Factors: DM, Current or recent (<one month) smoker, HTN, HLP, family history of CAD, obesity. Risk Scores: Score 0 - 3: 2.5% MACE over next 6 weeks - Discharge Home Score 4 - 6: 20.3% MACE over next 6 weeks - Admit for Clinical Observation Score 7 - 10: 72.7% MACE over next 6 weeks - Early Invasive Strategies Current Medications: Current Medications Medications (Trade) Dose Ordered Sig/Geovani Start Time Stop Time Status Last Admin Dose Admin Fentanyl Citrate (Fentanyl 2ml Vial) 25 mcg 1X ONCE 07/02/21 15:30 07/02/21 15:32 DC Info (CONTRAST GIVEN -- Rx MONITORING) 1 each PRN DAILY PRN 07/02/21 16:45 07/04/21 16:44 Iohexol (Omnipaque 300 Mg/ml) 75 ml 1X ONCE 07/02/21 16:45 07/02/21 16:46 DC 07/02/21 16:55 75 ML Allergies: Allergies: Allergies Coded Allergies Type Severity Reaction Last Updated Verified gabapentin Adverse Reaction Intermediate Nausea and Vomiting 07/02/21 Yes oxycodone Adverse Reaction Intermediate "MAKES HER CRAZY", TAKES LORTAB AT HOME 07/02/21 Yes Physical Exam: PE: Constitutional: Well developed, well nourished, no acute distress, non-toxic appearance. 85-year-old female in no apparent distress. HENT: Normocephalic, atraumatic. Eyes: Conjunctiva normal, no discharge. Neck: Normal range of motion, no stridor. Cardiovascular: No cyanosis appreciated, distal cap refill less than 2 seconds. Heart sounds S1-S2 to auscultation, regular rate and rhythm. Lungs & Thorax: Patient is in no respiratory distress, no audible adventitious lung sounds appreciated. Abdomen: Nontender, no abnormalities noted. Skin: Warm, dry, no erythema, no rash. [] Back: No tenderness, no deformities. Extremities: No tenderness, no cyanosis, no clubbing, ROM intact, no edema. [] Neurologic: Alert and oriented X 3, normal motor function, normal sensory function, no focal deficits noted. Psychologic: Affect normal, judgement normal, mood normal. Current Patient Data: Labs: Laboratory Tests Test 07/02/21 15:05 07/02/21 15:30 07/02/21 16:50 07/02/21 18:20 White Blood Count 5.5 x10^3/uL Red Blood Count 4.43 x10^6/uL Hemoglobin 12.2 g/dL Hematocrit 37.5 % Mean Corpuscular Volume 85 fL Mean Corpuscular Hemoglobin 28 pg Mean Corpuscular Hemoglobin Concent 33 g/dL Red Cell Distribution Width 15.0 % Platelet Count 151 x10^3/uL Neutrophils (%) (Auto) 73 % Lymphocytes (%) (Auto) 18 % Monocytes (%) (Auto) 7 % Eosinophils (%) (Auto) 1 % Basophils (%) (Auto) 1 % Neutrophils # (Auto) 4.0 x10^3/uL Lymphocytes # (Auto) 1.0 x10^3/uL Monocytes # (Auto) 0.4 x10^3/uL Eosinophils # (Auto) 0.1 x10^3/uL Basophils # (Auto) 0.0 x10^3/uL Sodium Level 142 mmol/L Potassium Level 4.4 mmol/L Chloride Level 108 mmol/L Carbon Dioxide Level 29 mmol/L Anion Gap 5 Blood Urea Nitrogen 16 mg/dL Creatinine 0.8 mg/dL Estimated GFR (Cockcroft-Gault) 68.3 BUN/Creatinine Ratio 20 Glucose Level 102 mg/dL Calcium Level 9.0 mg/dL Phosphorus Level 3.7 mg/dL Magnesium Level 2.5 mg/dL Total Bilirubin 0.5 mg/dL Aspartate Amino Transf (AST/SGOT) 23 U/L Alanine Aminotransferase (ALT/SGPT) 20 U/L Alkaline Phosphatase 83 U/L Creatine Kinase 54 U/L Creatine Kinase MB (Mass) ng/mL Creatine Kinase MB Relative Index 1.5 % Troponin I High Sensitivity 10 ng/L PC-[id number] Natriuretic Peptide 244 pg/mL Total Protein 6.5 g/dL Albumin 3.5 g/dL Albumin/Globulin Ratio 1.2 Lipase 124 U/L Influenza Type A Antigen Negative Influenza Type B Antigen Negative SARS-CoV-2 Antigen (Rapid) Negative Lactic Acid Level 1.1 mmol/L Urine Collection Type Unknown Urine Color Yellow Urine Clarity Clear Urine pH 8.0 Urine Specific [place] >=1.030 Urine Protein Negative mg/dL Urine Glucose (UA) Negative mg/dL Urine Ketones (Stick) Trace mg/dL Urine Blood Negative Urine Nitrite Negative Urine Bilirubin Negative Urine Urobilinogen Dipstick 0.2 mg/dL Urine Leukocyte Esterase Negative Urine RBC 0 /HPF Urine WBC Rare /HPF Urine Squamous Epithelial Cells Occ /LPF Urine Bacteria Few /HPF Current Medications Medications (Trade) Dose Ordered Sig/Geovani Route PRN Reason Start Time Stop Time Status Last Admin Dose Admin Fentanyl Citrate (Fentanyl 2ml Vial) 25 mcg 1X ONCE IVP 07/02/21 15:30 07/02/21 15:32 DC Iohexol (Omnipaque 300 Mg/ml) 75 ml 1X ONCE IV 07/02/21 16:45 07/02/21 16:46 DC 07/02/21 16:55 Info (CONTRAST GIVEN -- Rx MONITORING) 1 each PRN DAILY PRN MC SEE COMMENTS 07/02/21 16:45 07/02/21 19:55 DC Laboratory Tests Test 07/02/21 15:05 07/02/21 15:30 07/02/21 16:50 07/02/21 18:20 White Blood Count 5.5 x10^3/uL (4.0-11.0) Red Blood Count 4.43 x10^6/uL (3.50-5.40) Hemoglobin 12.2 g/dL (12.0-15.5) Hematocrit 37.5 % (36.0-47.0) Mean Corpuscular Volume 85 fL (79-100) Mean Corpuscular Hemoglobin 28 pg (25-35) Mean Corpuscular Hemoglobin Concent 33 g/dL (31-37) Red Cell Distribution Width 15.0 % (11.5-14.5) H Platelet Count 151 x10^3/uL (140-400) Neutrophils (%) (Auto) 73 % (31-73) Lymphocytes (%) (Auto) 18 % (24-48) L Monocytes (%) (Auto) 7 % (0-9) Eosinophils (%) (Auto) 1 % (0-3) Basophils (%) (Auto) 1 % (0-3) Neutrophils # (Auto) 4.0 x10^3/uL (1.8-7.7) Lymphocytes # (Auto) 1.0 x10^3/uL (1.0-4.8) Monocytes # (Auto) 0.4 x10^3/uL (0.0-1.1) Eosinophils # (Auto) 0.1 x10^3/uL (0.0-0.7) Basophils # (Auto) 0.0 x10^3/uL (0.0-0.2) Sodium Level 142 mmol/L (136-145) Potassium Level 4.4 mmol/L (3.5-5.1) Chloride Level 108 mmol/L (98-107) H Carbon Dioxide Level 29 mmol/L (21-32) Anion Gap 5 (6-14) L Blood Urea Nitrogen 16 mg/dL (7-20) Creatinine 0.8 mg/dL (0.6-1.0) Estimated GFR (Cockcroft-Gault) 68.3 BUN/Creatinine Ratio 20 (6-20) Glucose Level 102 mg/dL (70-99) H Calcium Level 9.0 mg/dL (8.5-10.1) Phosphorus Level 3.7 mg/dL (2.6-4.7) Magnesium Level 2.5 mg/dL (1.8-2.4) H Total Bilirubin 0.5 mg/dL (0.2-1.0) Aspartate Amino Transferase (AST) 23 U/L (15-37) Alanine Aminotransferase (ALT) 20 U/L (14-59) Alkaline Phosphatase 83 U/L (46-116) Creatine Kinase 54 U/L (26-192) Creatine Kinase MB (Mass) ng/mL (0.0-3.6) Creatine Kinase MB Relative Index 1.5 % (0-4) Troponin I High Sensitivity 10 ng/L (4-50) KY-Uor-X-Type Natriuretic Peptide 244 pg/mL (0-449) Total Protein 6.5 g/dL (6.4-8.2) Albumin 3.5 g/dL (3.4-5.0) Albumin/Globulin Ratio 1.2 (1.0-1.7) Lipase 124 U/L (73-393) Influenza Type A Antigen Negative (NEGATIVE) Influenza Type B Antigen Negative (NEGATIVE) SARS-CoV-2 Antigen (Rapid) Negative (NEGATIVE) Lactic Acid Level 1.1 mmol/L (0.4-2.0) Urine Collection Type Unknown Urine Color Yellow Urine Clarity Clear Urine pH 8.0 (<5.0-8.0) Urine Specific [place] >=1.030 (1.000-1.030) Urine Protein Negative mg/dL (NEG-TRACE) Urine Glucose (UA) Negative mg/dL (NEG) Urine Ketones (Stick) Trace mg/dL (NEG) Urine Blood Negative (NEG) Urine Nitrite Negative (NEG) Urine Bilirubin Negative (NEG) Urine Urobilinogen Dipstick 0.2 mg/dL (0.2 mg/dL) Urine Leukocyte Esterase Negative (NEG) Urine RBC 0 /HPF (0-2) Urine WBC Rare /HPF (0-4) Urine Squamous Epithelial Cells Occ /LPF Urine Bacteria Few /HPF (0-FEW) Laboratory Tests 07/02/21 15:05 Laboratory Tests 07/02/21 15:05 Vital Signs: Vital Signs Date Time Temp Pulse Resp B/P (MAP) Pulse Ox O2 Delivery O2 Flow Rate FiO2 07/02/21 18:43 81 18 156/90 (112) 94 Room Air 07/02/21 15:22 98.1 98.1 EKG: EKG: EKG performed at 1536 by ED nursing staff shows a heart rate of 79 bpm, normal sinus rhythm without other ectopy, NE of 1.130, QTc interval 0.484, no STEMI, no acute ischemia, no ACS appreciated, EKG interpreted by ED attending physician Dr. Linn Radiology/Procedures: Radiology/Procedures: SEX: F EXAM STATUS: REG ER ORD. PHYSICIAN: DOMO BIRMINGHAM APRN REASON: Abdominal pain, nausea, fever PROCEDURE: CHEST AP ONLY EXAM: Chest, single view. HISTORY: Pain. COMPARISON: 11/30/2019 FINDINGS: A frontal view of the chest is obtained. There are chronic appearing interstitial changes. There is stable mild elevation of the right hemidiaphragm. There is no consolidation, pleural effusion or pneumothorax. There is a stable chronic silhouette and cardiac pacemaker defibrillator. There is a left shoulder arthroplasty. IMPRESSION: Stable chronic appearing interstitial changes. Electronically signed by: Cherry Ch MD (07/02/2021 3:44 PM) [id number] STATUS: REG ER ORD. PHYSICIAN: DOMO BIRMINGHAM APRN REASON: RLQ/LLQ abdominal pain, fever, diarrhea PROCEDURE: CT ABD PELV W/ IV CONTRST ONLY EXAMINATION: CT abdomen and pelvis with IV contrast. INDICATION:85 years, Female, right lower quadrant abdominal pain, fever and diarrhea. TECHNIQUE: Axial CT images of the abdomen and pelvis were obtained. Coronal and sagittal reformatted performed. COMPARISON: 07/16/2016. Exposure: One or more of the following individualized dose reduction techniques were utilized for this examination: 1. Automated exposure control 2. Adjustment of the mA and/or kV according to patient size 3. Use of iterative reconstruction technique. FINDINGS: LOWER CHEST: Dependent subsegmental atelectasis in bibasilar lungs. Partially visualized pacemaker lead wires. ABDOMEN/PELVIS: Normal size and morphology of the liver with homogeneous enhancement. No suspicious focal hepatic lesion. Unremarkable gallbladder. No biliary ductal dilation. Unremarkable spleen. Severe atrophic pancreas. No adrenal nodule. No hydronephrosis or nephrolithiasis in either kidney. No bowel obstruction. Normal appendix. No lymphadenopathy in the abdomen or pelvis by size criteria. No pneumoperitoneum or ascites. Severe aortoiliac atherosclerotic calcifications without significant narrowing. Mesenteric arteries and portal veins are patent. Retroaortic left renal vein. Decompressed urinary bladder which limits evaluation. Unremarkable uterus. No suspicious pelvic masses. Coarse calcifications in the right ovary. MUSCULOSKELETAL STRUCTURES: Severe multilevel degenerative changes in the spine. Diffuse osteopenia. Minimal retrolisthesis of L1 over L2 and L2 over L3. Grade 1 anterolisthesis of L4 over L5. Laminectomy changes with posterior hardware fusion at L4-5. IMPRESSION: 1. No acute abnormality in the abdomen or pelvis. 2. Other chronic/incidental findings, as above. Electronically signed by: Andrea Jenkins MD (07/02/2021 5:18 PM) [id number] Course & Med Decision Making: Course & Med Decision Making Pertinent Labs and Imaging studies reviewed. (See chart for details) 85-year-old female, vital signs reviewed, presents emergency room concerning lower abdominal pain that radiates to back for the past 3 days. Physical examination concerning for possible diverticulitis versus urinary tract infection versus other abdominal process. Will order lipase, rapid flu and COVID-19 testing, blood cultures related to patient's reported fever, cardiac monitoring, twelve-lead EKG with chest x-ray, CBC, CMP, lactic acid with reflex, NT proBNP, magnesium, phosphorus, troponin I high-sensitivity, urinalysis assay. Will order CT abdomen pelvis with IV contrast only pending creatinine and GFR. The patient's urine is not infected, the patient's labs unremarkable, patient's imaging unremarkable. The patient did have large bowel movement while labs were pending, all symptoms resolved after bowel movement. Suggestive of constipation abdominal discomfort. Discussed findings with patient, strict follow-up with primary care soon, discussed suspicion of symptoms related to constipation, patient reveals that she does have constipation problems. Patient reports she has an appointment tomorrow with her primary care physician. Discussed with patient keeping this appointment, return to ER precautions and concerns, patient gave verbal understanding of and is amenable to ED discharge planning. Discussed with the patient all findings and diagnostic testing as well as the need to follow-up with their primary care provider for further evaluation and treatment or return to the ED if any new or worsening symptoms. Strict return precautions were also discussed at length, the patient voiced understanding and agreement with the discharge planning. The patient was nontoxic in appearance, in no apparent distress, and hemodynamically stable at the time of disposition. Dragon Disclaimer: Dragon Disclaimer: This electronic medical record was generated, in whole or in part, using a voice recognition dictation system. Departure Departure Impression: Primary Impression: Abdominal pain Qualified Codes: R10.30 - Lower abdominal pain, unspecified Disposition: HOME / SELF CARE / HOMELESS Condition: GOOD Referrals: YEIMY LA MD (PCP) Patient Instructions: Abdominal Pain Additional Instructions: 8 you were seen today in the emergency department for lower abdominal discomfort. Your lab work and CT scanning of your abdomen did not show any concerning findings, your urine is not infected. You had a large bowel movement in the emergency department today and this seemed to relieve your symptoms. Your abdominal pain is likely due to constipation problems. You had indicated you take lactulose for these types of issues. As we discussed, please follow-up with your primary care doctor and call him tomorrow to let him know of your ER visit today as he may consider changing your home medications. Keep all your future appointments with your ENT specialist at . Return to the emergency department for worsening symptoms or other concerns. Thank you for visiting our Emergency Department. It was a pleasure taking care of you today in the emergency department and we appreciate you trusting us with your care. If any additional problems come up don't hesitate to return to visit us. Please follow up with your primary care provider so they can plan additional care if needed and know about the problem that you had. If symptoms worsen come back to the Emergency Department. Any concerning symptoms that start such as chest pain, shortness of air, weakness or numbness on one side of the body, running high fevers or any other concerning symptoms return to the ER. EMERGENCY DEPARTMENT GENERAL DISCHARGE INSTRUCTIONS Thank you for coming to Emergency Department (ED) today and trusting us with you care. We trust that you had a positive experience in our Emergency Department. If you wish to speak to the department management, you may call the Director at [phone]. YOUR FOLLOW UP INSTRUCTIONS ARE FOLLOWS: 1. Do you have a private Doctor? If you do not have a private doctor, please ask for a resource list of physicians or clinics that may be able to assist you with follow up care. 2. The Emergency Physicain has interpreted your x-rays. The X-Ray specialist will also review them. If there is a change in the findings, you will be notified in 48 hours when at all possible. 3. A lab test or culture has been done, your results will be reviewed and you will be notified if you need a change in treatment. ADDITIONAL INSTRUCTIONS AND INFORMATION: 1. Your care today has been supervised by a physician who is specially trained in emergency care. Many problems require more than one evaluation for a complete diagnosis a nd treatment. We recommend that you schedule your follow up appointment as recommended to ensure complete treatment of you illness or injury. If you are unable to obtain follow up care and continue to have a problem, or if your condition worsens, we recommend that you return to the ED. 2. We are not able to safely determine your condition over the phone nor are we able to give sound medical advice over the phone. For these safety reasons, if you call for medical advice we will ask you to come to the ED for further evaluation. 3. If you have any questions regarding these discharge instructions please call the ED at [phone]. SAFETY INFORMATION: In the interest of safety, wellness, and injury prevention; we encourage you to wear your sealbelt, if you smoke; quite smoking, and we encourage family to use a protective helmet for bicycling and other sporting events that present an increased risk for head injury. IF YOUR SYMPTOMS WORSEN OR NEW SYMPTOMS DEVELOP, OR YOU HAVE CONCERNS ABOUT YOUR CONDITION; OR IF YOUR CONDITION WORSENS WHILE YOU ARE WAITING FOR YOUR FOLLOW UP APPOINTMENT; EITHER CONTACT YOUR PRIMARY CARE DOCTOR, THE PHYSICIAN WHOSE NAME AND NUMBER YOU WERE GIVEN, OR RETURN TO THE ED IMMEDIATELY. DOMO BIRMINGHAM APRN Jul 02, 2021 19:16
[2021-07-02 19:38] VITALS: BP 158/63
== END 2021-07-02 19:55 | disposition home or self-care (01) ==
LOC: ER 14:59
DX: R10.30 Lower abdominal pain, unspecified (principal); Z20.822 Contact with and (suspected) exposure to COVID-19; M54.50 Low back pain, unspecified; R19.7 Diarrhea, unspecified; Z86.79 Personal history of other diseases of the circulatory system; I25.10 Atherosclerotic heart disease of native coronary artery without angina pectoris; Z95.0 Presence of cardiac pacemaker; Z88.5 Allergy status to narcotic agent; Z88.8 Allergy status to other drugs, medicaments and biological substances
CPT/HCPCS: 36415; 71045; 74177; 80053; 81001; 82553; 83605; 83690; 83735; 83880; 84100; 84484; 85025; 87040; 87428; 93005; 99285; Q9967; U0003; U0005